=== PATIENT | female | born 1990 | race Caucasian/White ===

== ENCOUNTER 2017-05-15 10:02 | Inpatient (IN) | payer OTHER ==
[2017-05-15] MEDS ORDERED: ACETAMINOPHEN 325 MG TAB PO (13:30)
[2017-05-15] MEDS ORDERED: morphine 2 MG INJ IV (13:53)
[2017-05-15] MEDS: LACTOBACILLUS RHAMNOSUS CAP PO (14:13)
[2017-05-15] MEDS: ALLOPURINOL 100 MG TAB PO (14:13)
[2017-05-15] MEDS: HYDROCODONE/APAP (5/325) TAB PO (14:30)
[2017-05-15] MEDS: ALPRAZOLAM 0.5 MG TAB PO (14:30)
[2017-05-15] MEDS: LIDOCAINE 1% (MPF) 5 ML VIAL SC (15:15)
[2017-05-15 15:38] LABS: ADD MAN DIFF? NO
[2017-05-15 15:40] LABS: BASOPHILS % 0.7 % (0.0-2.0); EOSINOPHILS # 0.1 10^3/ul (0.0-0.5); EOSINOPHILS % 1.8 % (0.0-7.0); HEMATOCRIT 31.6 % (37.0-47.0); HEMOGLOBIN 11.1 g/dl (12.0-16.0); LYMPHOCYTES # 1.2 10^3/ul (0.8-2.9); LYMPHOCYTES % 26.5 % (15.0-51.0); MEAN CORPUSCULAR HEMOGLOBIN 35.5 pg (29.0-33.0); MEAN CORPUSCULAR HGB CONC 35.1 g/dl (32.0-37.0); MEAN PLATELET VOLUME 9.2 fl (7.4-10.4); MONOCYTE # 0.5 10^3/ul (0.3-0.9); MONOCYTES % 11.1 % (0.0-11.0); NEUTROPHIL # 2.7 10^3/ul (1.6-7.5); NEUTROPHILS % 59.7 % (39.0-77.0); PLATELET COUNT 143 10^3/UL (140-415); RED BLOOD COUNT 3.13 10^6/ul (4.20-5.40); RED CELL DISTRIBUTION WIDTH 12.1 % (11.5-14.5)
[2017-05-15 15:40] LABS: WHITE BLOOD COUNT 4.5 10^3/ul (4.8-10.8)
[2017-05-15 16:03] LABS: ALANINE AMINOTRANSFERASE 30 IU/L (13-69); ALBUMIN 3.6 g/dl (3.3-4.9); ALBUMIN/GLOBULIN RATIO 1.63; ALKALINE PHOSPHATASE 80 IU/L (42-121); AMYLASE 67 U/L (11-123); ANION GAP 13 (8-16); ASPARTATE AMINO TRANSFERASE 23 IU/L (15-46); BLOOD UREA NITROGEN 11 mg/dl (7-20); CALCIUM 8.3 mg/dl (8.4-10.2); CARBON DIOXIDE 26 mmol/L (21-31); CHLORIDE 106 mmol/L (97-110); CREATININE 0.58 mg/dl (0.44-1.00); GLUCOSE 114 mg/dl (70-220); LIPASE 283 U/L (23-300); MAGNESIUM 1.8 mg/dl (1.7-2.5); PHOSPHORUS 3.7 mg/dl (2.5-4.9); POTASSIUM 3.6 mmol/L (3.5-5.1); SODIUM 141 mmol/L (135-144); TOTAL PROTEIN 5.8 g/dl (6.1-8.1)
[2017-05-15] MEDS: SOD CHLORIDE 0.9% 1,000 ML IV ×2 (16:33→21:00)
[2017-05-16] MEDS: SOD CHLORIDE 0.9% 1,000 ML IV ×2 (04:40→23:40)
[2017-05-16 06:01] LABS: ADD MAN DIFF? NO
[2017-05-16 06:15] LABS: BASOPHILS % 0.4 % (0.0-2.0); EOSINOPHILS # 0.1 10^3/ul (0.0-0.5); EOSINOPHILS % 1.9 % (0.0-7.0); HEMATOCRIT 30.5 % (37.0-47.0); HEMOGLOBIN 10.6 g/dl (12.0-16.0); LYMPHOCYTES # 1.2 10^3/ul (0.8-2.9); LYMPHOCYTES % 22.2 % (15.0-51.0); MEAN CORPUSCULAR HEMOGLOBIN 35.3 pg (29.0-33.0); MEAN CORPUSCULAR HGB CONC 34.8 g/dl (32.0-37.0); MEAN CORPUSCULAR VOLUME 101.7 fl (82.0-101.0); MEAN PLATELET VOLUME 9.7 fl (7.4-10.4); MONOCYTE # 0.6 10^3/ul (0.3-0.9); MONOCYTES % 10.8 % (0.0-11.0); NEUTROPHIL # 3.5 10^3/ul (1.6-7.5); NEUTROPHILS % 64.5 % (39.0-77.0); PLATELET COUNT 130 10^3/UL (140-415); RED CELL DISTRIBUTION WIDTH 12.1 % (11.5-14.5)
[2017-05-16 06:15] LABS: WHITE BLOOD COUNT 5.4 10^3/ul (4.8-10.8)
[2017-05-16 06:27] LABS: PHOSPHORUS 3.6 mg/dl (2.5-4.9)
[2017-05-16 06:27] LABS: MAGNESIUM 1.6 mg/dl (1.7-2.5)
[2017-05-16 06:43] LABS: ANION GAP 11 (8-16); BLOOD UREA NITROGEN 8 mg/dl (7-20); CALCIUM 7.9 mg/dl (8.4-10.2); CARBON DIOXIDE 24 mmol/L (21-31); CHLORIDE 111 mmol/L (97-110); CREATININE 0.56 mg/dl (0.44-1.00); GLUCOSE 82 mg/dl (70-220); POTASSIUM 3.3 mmol/L (3.5-5.1); SODIUM 143 mmol/L (135-144)
[2017-05-16] MEDS ORDERED: ONDANSETRON INJ 8 MG in DEXTROSE 5% 50 ML IV (09:00)
[2017-05-16] MEDS ORDERED: ALLOPURINOL 100 MG TAB PO (09:00)
[2017-05-16] MEDS: ALLOPURINOL 100 MG TAB PO (09:03)
[2017-05-16] MEDS: LACTOBACILLUS RHAMNOSUS CAP PO (09:03)
[2017-05-16] MEDS: FLUCONAZOLE 100 MG TAB PO (09:03)
[2017-05-16] MEDS: ACYCLOVIR 400 MG TAB PO ×2 (09:03→21:10)
[2017-05-16] MEDS ORDERED: DIPHENHYDRAMINE 50 MG INJ IV (10:30)
[2017-05-16] MEDS: POTASSIUM CHLORIDE 50 ML IVPB ×2 (10:36→12:38)
[2017-05-16] MEDS: MAGNESIUM SULFATE 2 GM/50 ML 50 ML IVPB (10:36)
[2017-05-16] MEDS ORDERED: MEPERIDINE 50 MG INJ IV (12:00)
[2017-05-16] MEDS ORDERED: METHYLPREDNISOLONE 125 MG INJ IV (12:00)
[2017-05-16] MEDS: DIPHENHYDRAMINE 25 MG CAP PO ×2 (12:26→15:07)
[2017-05-16] MEDS ORDERED: DIPHENHYDRAMINE 25 MG CAP PO (12:30)
[2017-05-16] MEDS: ONDANSETRON INJ 16 MG, DEXAMETHASONE 4 MG/ML 10 MG in DEXTROSE 5% 50 ML IV (15:06)
[2017-05-16] MEDS: CYTARABINE IVPB (16:03)
[2017-05-16] MEDS: SOD CHLORIDE 0.9% IVPB (16:03)
[2017-05-16] MEDS: FLUOXETINE 10 MG CAP PO (21:23)
[2017-05-17] MEDS: ONDANSETRON INJ 16 MG, DEXAMETHASONE 4 MG/ML 10 MG in DEXTROSE 5% 50 ML IV (03:23)
[2017-05-17] MEDS: DIPHENHYDRAMINE 25 MG CAP PO (03:24)
[2017-05-17] MEDS: SOD CHLORIDE 0.9% IVPB (03:47)
[2017-05-17] MEDS: CYTARABINE IVPB (03:47)
[2017-05-17] MEDS: ACYCLOVIR 400 MG TAB PO ×2 (09:39→20:40)
[2017-05-17] MEDS: FLUCONAZOLE 100 MG TAB PO (09:39)
[2017-05-17] MEDS: LACTOBACILLUS RHAMNOSUS CAP PO (09:39)
[2017-05-17] MEDS: ALLOPURINOL 100 MG TAB PO (09:40)
[2017-05-17 11:07] LABS: ADD MAN DIFF? NO
[2017-05-17 11:28] LABS: MAGNESIUM 1.7 mg/dl (1.7-2.5)
[2017-05-17 11:29] LABS: ANION GAP 17 (8-16); BLOOD UREA NITROGEN 11 mg/dl (7-20); CALCIUM 9.2 mg/dl (8.4-10.2); CARBON DIOXIDE 24 mmol/L (21-31); CHLORIDE 106 mmol/L (97-110); CREATININE 0.62 mg/dl (0.44-1.00); GLUCOSE 117 mg/dl (70-220); POTASSIUM 4.1 mmol/L (3.5-5.1); SODIUM 143 mmol/L (135-144)
[2017-05-17 11:32] LABS: ABNORMAL IP MESSAGE 1; HEMATOCRIT 34.4 % (37.0-47.0); HEMOGLOBIN 12.2 g/dl (12.0-16.0); LYMPHOCYTES # 0.5 10^3/ul (0.8-2.9); LYMPHOCYTES % 3.9 % (15.0-51.0); MEAN CORPUSCULAR HEMOGLOBIN 35.9 pg (29.0-33.0); MEAN CORPUSCULAR HGB CONC 35.5 g/dl (32.0-37.0); MEAN CORPUSCULAR VOLUME 101.2 fl (82.0-101.0); MEAN PLATELET VOLUME 9.6 fl (7.4-10.4); MONOCYTE # 0.2 10^3/ul (0.3-0.9); MONOCYTES % 1.5 % (0.0-11.0); NEUTROPHIL # 11.4 10^3/ul (1.6-7.5); NEUTROPHILS % 94.1 % (39.0-77.0); PLATELET COUNT 156 10^3/UL (140-415); RED CELL DISTRIBUTION WIDTH 11.9 % (11.5-14.5)
[2017-05-17 11:32] LABS: WHITE BLOOD COUNT 12.2 10^3/ul (4.8-10.8)
[2017-05-17 11:35] LABS: POSITIVE DIFF @See below
[2017-05-17 11:49] LABS: INR 1.05; PROTIME 13.8 Sec (11.9-14.9); PT RATIO 1.1
[2017-05-17 11:50] LABS: PARTIAL THROMBOPLASTIN TIME 23.6 Sec (25.0-35.0)
[2017-05-17] MEDS: LIDOCAINE 1% (MDV) 20 ML INJ (14:15)
[2017-05-17] MEDS: SOD CHLORIDE 0.9% 1,000 ML IV (14:48)
[2017-05-17] MEDS: MIDAZOLAM 1 MG/ML 2 ML INJ (16:35)
[2017-05-17] MEDS: SOD CHLORIDE 0.9% 500 ML (16:36)
[2017-05-17] MEDS: FENTAnyl 50 MCG/ML VIAL (16:37)
[2017-05-18] MEDS: SOD CHLORIDE 0.9% 1,000 ML IV ×2 (00:58→16:09)
[2017-05-18 05:19] LABS: ADD MAN DIFF? NO
[2017-05-18 05:24] LABS: WHITE BLOOD COUNT 8.6 10^3/ul (4.8-10.8)
[2017-05-18 05:24] LABS: BASOPHILS % 0.1 % (0.0-2.0); EOSINOPHILS % 0.1 % (0.0-7.0); HEMATOCRIT 30.4 % (37.0-47.0); HEMOGLOBIN 10.5 g/dl (12.0-16.0); LYMPHOCYTES # 0.9 10^3/ul (0.8-2.9); LYMPHOCYTES % 9.8 % (15.0-51.0); MEAN CORPUSCULAR HEMOGLOBIN 35.1 pg (29.0-33.0); MEAN CORPUSCULAR HGB CONC 34.5 g/dl (32.0-37.0); MEAN CORPUSCULAR VOLUME 101.7 fl (82.0-101.0); MEAN PLATELET VOLUME 9.7 fl (7.4-10.4); MONOCYTE # 0.6 10^3/ul (0.3-0.9); MONOCYTES % 7.4 % (0.0-11.0); NEUTROPHIL # 7.1 10^3/ul (1.6-7.5); NEUTROPHILS % 82.3 % (39.0-77.0); PLATELET COUNT 108 10^3/UL (140-415); RED BLOOD COUNT 2.99 10^6/ul (4.20-5.40)
[2017-05-18 05:50] LABS: ALANINE AMINOTRANSFERASE 31 IU/L (13-69); ALBUMIN 3.7 g/dl (3.3-4.9); ALBUMIN/GLOBULIN RATIO 1.76; ALKALINE PHOSPHATASE 57 IU/L (42-121); ANION GAP 12 (8-16); ASPARTATE AMINO TRANSFERASE 25 IU/L (15-46); BILIRUBIN,INDIRECT 0.1 mg/dl (0-1.1); BILIRUBIN,TOTAL 0.1 mg/dl (0.2-1.3); BLOOD UREA NITROGEN 11 mg/dl (7-20); CALCIUM 8.5 mg/dl (8.4-10.2); CARBON DIOXIDE 27 mmol/L (21-31); CHLORIDE 107 mmol/L (97-110); CREATININE 0.67 mg/dl (0.44-1.00); GLUCOSE 90 mg/dl (70-220); SODIUM 142 mmol/L (135-144); TOTAL PROTEIN 5.8 g/dl (6.1-8.1)
[2017-05-18] MEDS: LACTOBACILLUS RHAMNOSUS CAP PO (09:22)
[2017-05-18] MEDS: ACYCLOVIR 400 MG TAB PO ×2 (09:23→21:51)
[2017-05-18] MEDS: ALLOPURINOL 100 MG TAB PO (09:23)
[2017-05-18] MEDS: FLUCONAZOLE 100 MG TAB PO (09:23)
[2017-05-18] MEDS: SOD CHLORIDE 0.9% IT (13:00)
[2017-05-18] MEDS: METHOTREXATE IT (13:00)
[2017-05-18] MEDS: HYDROCORTISONE IT (13:00)
[2017-05-18] MEDS: ONDANSETRON INJ 16 MG, DEXAMETHASONE 4 MG/ML 10 MG in DEXTROSE 5% 50 ML IV (16:05)
[2017-05-18] MEDS: PREDNISOLONE ACET 1% 5 ML OPH BOTH EYES (16:08)
[2017-05-18] MEDS: SOD CHLORIDE 0.9% IVPB (16:08)
[2017-05-18] MEDS: CYTARABINE IVPB (16:08)
[2017-05-18] MEDS: DIPHENHYDRAMINE 50 MG INJ IV ×2 (16:09→22:30)
[2017-05-18] MEDS: FLUOXETINE 10 MG CAP PO (21:51)
[2017-05-19] MEDS: PREDNISOLONE ACET 1% 5 ML OPH BOTH EYES ×3 (01:00→21:01)
[2017-05-19] MEDS: ONDANSETRON INJ 16 MG, DEXAMETHASONE 4 MG/ML 10 MG in DEXTROSE 5% 50 ML IV (03:19)
[2017-05-19] MEDS: DIPHENHYDRAMINE 50 MG INJ IV (03:39)
[2017-05-19] MEDS: SOD CHLORIDE 0.9% IVPB (03:53)
[2017-05-19] MEDS: CYTARABINE IVPB (03:53)
[2017-05-19] MEDS: SOD CHLORIDE 0.9% 1,000 ML IV ×2 (04:38→16:36)
[2017-05-19] MEDS: LACTOBACILLUS RHAMNOSUS CAP PO (09:11)
[2017-05-19] MEDS: ACYCLOVIR 400 MG TAB PO ×2 (09:11→21:02)
[2017-05-19] MEDS: FLUCONAZOLE 100 MG TAB PO (09:11)
[2017-05-19] MEDS: ALLOPURINOL 100 MG TAB PO (09:11)
[2017-05-19 11:44] LABS: ADD MAN DIFF? NO
[2017-05-19 11:51] LABS: WHITE BLOOD COUNT 9.8 10^3/ul (4.8-10.8)
[2017-05-19 11:51] LABS: ABNORMAL IP MESSAGE 1; HEMATOCRIT 34.1 % (37.0-47.0); LYMPHOCYTES # 0.3 10^3/ul (0.8-2.9); LYMPHOCYTES % 2.9 % (15.0-51.0); MEAN CORPUSCULAR HEMOGLOBIN 35.3 pg (29.0-33.0); MEAN CORPUSCULAR HGB CONC 35.2 g/dl (32.0-37.0); MEAN CORPUSCULAR VOLUME 100.3 fl (82.0-101.0); MEAN PLATELET VOLUME 9.6 fl (7.4-10.4); MONOCYTE # 0.1 10^3/ul (0.3-0.9); MONOCYTES % 1.4 % (0.0-11.0); NEUTROPHIL # 9.3 10^3/ul (1.6-7.5); PLATELET COUNT 143 10^3/UL (140-415); RED CELL DISTRIBUTION WIDTH 11.7 % (11.5-14.5)
[2017-05-19 12:01] LABS: POSITIVE DIFF @See below
[2017-05-19 12:13] LABS: ALBUMIN/GLOBULIN RATIO 1.83; ANION GAP 15 (8-16)
[2017-05-19 12:23] LABS: ALANINE AMINOTRANSFERASE 29 IU/L (13-69); ALBUMIN 4.4 g/dl (3.3-4.9); ALKALINE PHOSPHATASE 71 IU/L (42-121); ASPARTATE AMINO TRANSFERASE 21 IU/L (15-46); BILIRUBIN,INDIRECT 0.2 mg/dl (0-1.1); BILIRUBIN,TOTAL 0.2 mg/dl (0.2-1.3); BLOOD UREA NITROGEN 11 mg/dl (7-20); CARBON DIOXIDE 25 mmol/L (21-31); CHLORIDE 105 mmol/L (97-110); CREATININE 0.62 mg/dl (0.44-1.00); GLUCOSE 117 mg/dl (70-220); POTASSIUM 4.1 mmol/L (3.5-5.1); SODIUM 141 mmol/L (135-144); TOTAL PROTEIN 6.8 g/dl (6.1-8.1)
[2017-05-20] MEDS: SOD CHLORIDE 0.9% 1,000 ML IV ×3 (04:28→20:39)
[2017-05-20 05:04] LABS: ADD MAN DIFF? NO
[2017-05-20 05:10] LABS: WHITE BLOOD COUNT 7.4 10^3/ul (4.8-10.8)
[2017-05-20 05:10] LABS: BASOPHILS % 0.1 % (0.0-2.0); EOSINOPHILS % 0.3 % (0.0-7.0); HEMOGLOBIN 10.6 g/dl (12.0-16.0); LYMPHOCYTES # 0.6 10^3/ul (0.8-2.9); LYMPHOCYTES % 8.2 % (15.0-51.0); MEAN CORPUSCULAR HEMOGLOBIN 35.8 pg (29.0-33.0); MEAN CORPUSCULAR HGB CONC 35.3 g/dl (32.0-37.0); MEAN CORPUSCULAR VOLUME 101.4 fl (82.0-101.0); MEAN PLATELET VOLUME 9.5 fl (7.4-10.4); MONOCYTE # 0.2 10^3/ul (0.3-0.9); MONOCYTES % 2.8 % (0.0-11.0); NEUTROPHIL # 6.6 10^3/ul (1.6-7.5); NEUTROPHILS % 88.1 % (39.0-77.0); PLATELET COUNT 118 10^3/UL (140-415); RED BLOOD COUNT 2.96 10^6/ul (4.20-5.40); RED CELL DISTRIBUTION WIDTH 11.5 % (11.5-14.5)
[2017-05-20 05:52] LABS: ALANINE AMINOTRANSFERASE 29 IU/L (13-69); ALBUMIN 3.5 g/dl (3.3-4.9); ALBUMIN/GLOBULIN RATIO 1.45; ALKALINE PHOSPHATASE 57 IU/L (42-121); ANION GAP 12 (8-16); ASPARTATE AMINO TRANSFERASE 21 IU/L (15-46); BILIRUBIN,INDIRECT 0.1 mg/dl (0-1.1); BILIRUBIN,TOTAL 0.1 mg/dl (0.2-1.3); BLOOD UREA NITROGEN 13 mg/dl (7-20); CALCIUM 8.9 mg/dl (8.4-10.2); CARBON DIOXIDE 27 mmol/L (21-31); CHLORIDE 107 mmol/L (97-110); CREATININE 0.62 mg/dl (0.44-1.00); GLUCOSE 105 mg/dl (70-220); POTASSIUM 3.7 mmol/L (3.5-5.1); SODIUM 142 mmol/L (135-144); TOTAL PROTEIN 5.9 g/dl (6.1-8.1)
[2017-05-20] MEDS: ACYCLOVIR 400 MG TAB PO ×2 (09:35→20:37)
[2017-05-20] MEDS: LACTOBACILLUS RHAMNOSUS CAP PO (09:35)
[2017-05-20] MEDS: FLUCONAZOLE 100 MG TAB PO (09:36)
[2017-05-20] MEDS: ALLOPURINOL 100 MG TAB PO (09:36)
[2017-05-20] MEDS: PREDNISOLONE ACET 1% 5 ML OPH BOTH EYES ×2 (09:36→20:37)
[2017-05-20] MEDS: DIPHENHYDRAMINE 50 MG INJ IV ×2 (10:30→22:30)
[2017-05-20] MEDS: DIPHENHYDRAMINE 25 MG CAP PO (15:26)
[2017-05-20] MEDS: ONDANSETRON INJ 16 MG, DEXAMETHASONE 4 MG/ML 10 MG in DEXTROSE 5% 50 ML IV (16:00)
[2017-05-20] MEDS: CYTARABINE IVPB (17:00)
[2017-05-20] MEDS: SOD CHLORIDE 0.9% IVPB (17:00)
[2017-05-20] MEDS: FLUOXETINE 10 MG CAP PO (20:37)
[2017-05-21] MEDS: DIPHENHYDRAMINE 50 MG INJ IV (03:48)
[2017-05-21] MEDS: ONDANSETRON INJ 16 MG, DEXAMETHASONE 4 MG/ML 10 MG in DEXTROSE 5% 50 ML IV (03:48)
[2017-05-21] MEDS: CYTARABINE IVPB (04:22)
[2017-05-21] MEDS: SOD CHLORIDE 0.9% IVPB (04:22)
[2017-05-21] MEDS: LACTOBACILLUS RHAMNOSUS CAP PO (08:33)
[2017-05-21] MEDS: PREDNISOLONE ACET 1% 5 ML OPH BOTH EYES ×2 (08:33→20:54)
[2017-05-21] MEDS: SOD CHLORIDE 0.9% 1,000 ML IV ×2 (08:34→22:17)
[2017-05-21] MEDS: ALLOPURINOL 100 MG TAB PO (08:34)
[2017-05-21] MEDS: FLUCONAZOLE 100 MG TAB PO (08:34)
[2017-05-21] MEDS: ACYCLOVIR 400 MG TAB PO ×2 (08:34→20:54)
[2017-05-21 10:42] LABS: ADD MAN DIFF? NO
[2017-05-21 10:55] LABS: ABNORMAL IP MESSAGE 1; BASOPHILS % 0.2 % (0.0-2.0); HEMATOCRIT 31.1 % (37.0-47.0); HEMOGLOBIN 11.2 g/dl (12.0-16.0); LYMPHOCYTES # 0.3 10^3/ul (0.8-2.9); MEAN CORPUSCULAR HEMOGLOBIN 35.1 pg (29.0-33.0); MEAN CORPUSCULAR VOLUME 97.5 fl (82.0-101.0); MEAN PLATELET VOLUME 9.4 fl (7.4-10.4); MONOCYTES % 0.2 % (0.0-11.0); NEUTROPHIL # 5.9 10^3/ul (1.6-7.5); PLATELET COUNT 112 10^3/UL (140-415); RED BLOOD COUNT 3.19 10^6/ul (4.20-5.40); RED CELL DISTRIBUTION WIDTH 11.4 % (11.5-14.5)
[2017-05-21 10:55] LABS: WHITE BLOOD COUNT 6.2 10^3/ul (4.8-10.8)
[2017-05-21 11:05] LABS: POSITIVE DIFF @See below
[2017-05-21 11:09] LABS: ALANINE AMINOTRANSFERASE 33 IU/L (13-69); ALBUMIN 3.9 g/dl (3.3-4.9); ALBUMIN/GLOBULIN RATIO 1.56; ALKALINE PHOSPHATASE 59 IU/L (42-121); ANION GAP 13 (8-16); ASPARTATE AMINO TRANSFERASE 20 IU/L (15-46); BILIRUBIN,INDIRECT 0.1 mg/dl (0-1.1); BILIRUBIN,TOTAL 0.1 mg/dl (0.2-1.3); BLOOD UREA NITROGEN 13 mg/dl (7-20); CALCIUM 9.5 mg/dl (8.4-10.2); CARBON DIOXIDE 27 mmol/L (21-31); CHLORIDE 106 mmol/L (97-110); CREATININE 0.56 mg/dl (0.44-1.00); GLUCOSE 119 mg/dl (70-220); POTASSIUM 4.1 mmol/L (3.5-5.1); SODIUM 142 mmol/L (135-144); TOTAL PROTEIN 6.4 g/dl (6.1-8.1)
[2017-05-22] MEDS: PREDNISOLONE ACET 1% 5 ML OPH BOTH EYES ×2 (09:49→21:05)
[2017-05-22] MEDS: LACTOBACILLUS RHAMNOSUS CAP PO (09:49)
[2017-05-22] MEDS: FLUCONAZOLE 100 MG TAB PO (09:49)
[2017-05-22] MEDS: SOD CHLORIDE 0.9% 1,000 ML IV ×2 (09:49→22:43)
[2017-05-22] MEDS: ALLOPURINOL 100 MG TAB PO (09:49)
[2017-05-22] MEDS: ACYCLOVIR 400 MG TAB PO ×2 (09:49→21:05)
[2017-05-22 10:31] LABS: ADD MAN DIFF? NO
[2017-05-22 10:38] LABS: WHITE BLOOD COUNT 3.6 10^3/ul (4.8-10.8)
[2017-05-22 10:38] LABS: ABNORMAL IP MESSAGE 1; BASOPHILS % 0.3 % (0.0-2.0); EOSINOPHILS % 0.3 % (0.0-7.0); HEMOGLOBIN 11.5 g/dl (12.0-16.0); LYMPHOCYTES # 0.8 10^3/ul (0.8-2.9); MEAN CORPUSCULAR HEMOGLOBIN 35.3 pg (29.0-33.0); MEAN CORPUSCULAR HGB CONC 35.9 g/dl (32.0-37.0); MEAN CORPUSCULAR VOLUME 98.2 fl (82.0-101.0); MEAN PLATELET VOLUME 8.8 fl (7.4-10.4); NEUTROPHIL # 2.8 10^3/ul (1.6-7.5); NEUTROPHILS % 77.8 % (39.0-77.0); RED BLOOD COUNT 3.26 10^6/ul (4.20-5.40); RED CELL DISTRIBUTION WIDTH 11.4 % (11.5-14.5)
[2017-05-22 10:41] LABS: PLATELET COUNT 82 10^3/UL (140-415); POSITIVE DIFF @See below
[2017-05-22 10:51] LABS: ANION GAP 13 (8-16); BLOOD UREA NITROGEN 13 mg/dl (7-20); CARBON DIOXIDE 28 mmol/L (21-31); CHLORIDE 105 mmol/L (97-110); CREATININE 0.68 mg/dl (0.44-1.00); GLUCOSE 81 mg/dl (70-220); POTASSIUM 3.8 mmol/L (3.5-5.1); SODIUM 142 mmol/L (135-144)
[2017-05-22 10:52] LABS: ALANINE AMINOTRANSFERASE 32 IU/L (13-69); ALBUMIN/GLOBULIN RATIO 1.81; ALKALINE PHOSPHATASE 65 IU/L (42-121); ASPARTATE AMINO TRANSFERASE 16 IU/L (15-46); BILIRUBIN,INDIRECT 0.1 mg/dl (0-1.1); BILIRUBIN,TOTAL 0.1 mg/dl (0.2-1.3); CALCIUM 9.1 mg/dl (8.4-10.2); TOTAL PROTEIN 6.2 g/dl (6.1-8.1)
[2017-05-22] MEDS: FLUOXETINE 10 MG CAP PO (21:05)
[2017-05-23] MEDS: SOD CHLORIDE 0.9% 1,000 ML IV ×2 (02:20→12:35)
[2017-05-23 05:19] LABS: ADD MAN DIFF? NO
[2017-05-23 05:25] LABS: WHITE BLOOD COUNT 3.1 10^3/ul (4.8-10.8)
[2017-05-23 05:25] LABS: ABNORMAL IP MESSAGE 1; BASOPHILS % 0.6 % (0.0-2.0); EOSINOPHILS % 0.3 % (0.0-7.0); HEMATOCRIT 30.8 % (37.0-47.0); HEMOGLOBIN 11.1 g/dl (12.0-16.0); LYMPHOCYTES % 30.8 % (15.0-51.0); MEAN CORPUSCULAR HEMOGLOBIN 35.4 pg (29.0-33.0); MEAN CORPUSCULAR VOLUME 98.1 fl (82.0-101.0); MEAN PLATELET VOLUME 9.1 fl (7.4-10.4); NEUTROPHIL # 2.1 10^3/ul (1.6-7.5); PLATELET COUNT 79 10^3/UL (140-415); RED BLOOD COUNT 3.14 10^6/ul (4.20-5.40); RED CELL DISTRIBUTION WIDTH 11.5 % (11.5-14.5)
[2017-05-23 05:32] LABS: POSITIVE DIFF @See below
[2017-05-23 05:44] LABS: ALANINE AMINOTRANSFERASE 31 IU/L (13-69); ALBUMIN 3.5 g/dl (3.3-4.9); ALBUMIN/GLOBULIN RATIO 1.45; ALKALINE PHOSPHATASE 62 IU/L (42-121); ANION GAP 11 (8-16); ASPARTATE AMINO TRANSFERASE 16 IU/L (15-46); BLOOD UREA NITROGEN 13 mg/dl (7-20); CARBON DIOXIDE 28 mmol/L (21-31); CHLORIDE 105 mmol/L (97-110); GLUCOSE 90 mg/dl (70-220); POTASSIUM 3.9 mmol/L (3.5-5.1); SODIUM 140 mmol/L (135-144); TOTAL PROTEIN 5.9 g/dl (6.1-8.1)
[2017-05-23] MEDS: ACYCLOVIR 400 MG TAB PO ×2 (10:22→20:53)
[2017-05-23] MEDS: FLUCONAZOLE 100 MG TAB PO (10:23)
[2017-05-23] MEDS: LACTOBACILLUS RHAMNOSUS CAP PO (10:23)
[2017-05-23] MEDS: ALLOPURINOL 100 MG TAB PO (10:24)
[2017-05-23] MEDS: PREDNISOLONE ACET 1% 5 ML OPH BOTH EYES ×2 (10:26→20:59)
[2017-05-24] MEDS: SOD CHLORIDE 0.9% 1,000 ML IV ×2 (02:48→16:21)
[2017-05-24 05:43] LABS: MAGNESIUM 1.9 mg/dl (1.7-2.5)
[2017-05-24 05:43] LABS: PHOSPHORUS 5.1 mg/dl (2.5-4.9)
[2017-05-24 06:03] LABS: ALANINE AMINOTRANSFERASE 32 IU/L (13-69); ALBUMIN 3.8 g/dl (3.3-4.9); ALBUMIN/GLOBULIN RATIO 1.46; ALKALINE PHOSPHATASE 67 IU/L (42-121); ANION GAP 11 (8-16); ASPARTATE AMINO TRANSFERASE 20 IU/L (15-46); BLOOD UREA NITROGEN 11 mg/dl (7-20); CALCIUM 9.4 mg/dl (8.4-10.2); CARBON DIOXIDE 30 mmol/L (21-31); CHLORIDE 103 mmol/L (97-110); CREATININE 0.58 mg/dl (0.44-1.00); GLUCOSE 92 mg/dl (70-220); POTASSIUM 3.9 mmol/L (3.5-5.1); SODIUM 140 mmol/L (135-144); TOTAL PROTEIN 6.4 g/dl (6.1-8.1)
[2017-05-24 08:05] LABS: ABNORMAL IP MESSAGE 1; HEMATOCRIT 33.5 % (37.0-47.0); HEMOGLOBIN 12.1 g/dl (12.0-16.0); MEAN CORPUSCULAR HEMOGLOBIN 34.9 pg (29.0-33.0); MEAN CORPUSCULAR HGB CONC 36.1 g/dl (32.0-37.0); MEAN CORPUSCULAR VOLUME 96.5 fl (82.0-101.0); PLATELET COUNT 60 10^3/UL (140-415); RED BLOOD COUNT 3.47 10^6/ul (4.20-5.40); RED CELL DISTRIBUTION WIDTH 11.4 % (11.5-14.5)
[2017-05-24 08:05] LABS: WHITE BLOOD COUNT 2.4 10^3/ul (4.8-10.8)
[2017-05-24 08:10] LABS: POSITIVE DIFF @See below
[2017-05-24 08:12] LABS: ADD MAN DIFF? YES
[2017-05-24] MEDS: LACTOBACILLUS RHAMNOSUS CAP PO (08:12)
[2017-05-24] MEDS: FLUCONAZOLE 100 MG TAB PO (08:12)
[2017-05-24] MEDS: PREDNISOLONE ACET 1% 5 ML OPH BOTH EYES ×3 (08:12→21:06)
[2017-05-24] MEDS: ACYCLOVIR 400 MG TAB PO ×2 (08:12→21:06)
[2017-05-24] MEDS: ALLOPURINOL 100 MG TAB PO (08:12)
[2017-05-24 13:00] LABS: ANISOCYTOSIS 1+ (0-0); BAND NEUTROPHILS #M 0.1 10^3/ul (0.0-0.6); BAND NEUTROPHILS % (M) 5 % (0-4); BLAST% (M) 5.2 % (0-0); EOSINOPHILS % (M) 1 % (0-7); LYMPHOCYTES #M 0.6 10^3/ul (0.8-2.9); LYMPHOCYTES % (M) 27 % (15-51); OVALOCYTES 1+ (0-0); PLATELET ESTIMATE DECREASED; POIKILOCYTOSIS 1+ (0-0); REACTIVE LYMPHOCYTES% (M) 1 % (0-0); SEG NEUT #M 1.5 10^3/ul (1.7-7.5); SEGMENTED NEUTROPHILS (M) % 61 % (39-77); SMUDGE%M 5 % (0-0)
[2017-05-24] MEDS: FLUOXETINE 10 MG CAP PO (21:05)
[2017-05-25 05:19] LABS: ABNORMAL IP MESSAGE 1; HEMOGLOBIN 11.1 g/dl (12.0-16.0); MEAN CORPUSCULAR HEMOGLOBIN 35.5 pg (29.0-33.0); MEAN CORPUSCULAR VOLUME 95.8 fl (82.0-101.0); RED BLOOD COUNT 3.13 10^6/ul (4.20-5.40); RED CELL DISTRIBUTION WIDTH 11.3 % (11.5-14.5)
[2017-05-25 05:22] LABS: ADD MAN DIFF? YES; PATH REVIEW? YES; POSITIVE DIFF @See below
[2017-05-25 05:24] LABS: PLATELET COUNT 43 10^3/UL (140-415)
[2017-05-25 05:45] LABS: ALANINE AMINOTRANSFERASE 31 IU/L (13-69); ALBUMIN 3.8 g/dl (3.3-4.9); ALBUMIN/GLOBULIN RATIO 1.52; ALKALINE PHOSPHATASE 75 IU/L (42-121); ANION GAP 13 (8-16); ASPARTATE AMINO TRANSFERASE 19 IU/L (15-46); BLOOD UREA NITROGEN 13 mg/dl (7-20); CALCIUM 9.3 mg/dl (8.4-10.2); CARBON DIOXIDE 29 mmol/L (21-31); CHLORIDE 103 mmol/L (97-110); GLUCOSE 90 mg/dl (70-220); POTASSIUM 3.8 mmol/L (3.5-5.1); SODIUM 141 mmol/L (135-144); TOTAL PROTEIN 6.3 g/dl (6.1-8.1)
[2017-05-25 05:49] LABS: PHOSPHORUS 4.9 mg/dl (2.5-4.9)
[2017-05-25 05:49] LABS: MAGNESIUM 1.9 mg/dl (1.7-2.5)
[2017-05-25] MEDS: SOD CHLORIDE 0.9% 1,000 ML IV ×2 (07:40→10:05)
[2017-05-25 07:48] LABS: ANISOCYTOSIS 1+ (0-0); LYMPHOCYTES % (M) 50 % (15-51); MICROCYTOSIS 1+ (0-0); MONOCYTES % (M) 2 % (0-11); PLATELET ESTIMATE DECREASED; SEGMENTED NEUTROPHILS (M) % 48 % (39-77); SMUDGE%M 4 % (0-0)
[2017-05-25] MEDS: PREDNISOLONE ACET 1% 5 ML OPH BOTH EYES ×2 (08:58→21:00)
[2017-05-25] MEDS: ALLOPURINOL 100 MG TAB PO (08:58)
[2017-05-25] MEDS: FLUCONAZOLE 100 MG TAB PO (08:58)
[2017-05-25] MEDS: LACTOBACILLUS RHAMNOSUS CAP PO (08:58)
[2017-05-25] MEDS: ACYCLOVIR 400 MG TAB PO ×2 (08:58→21:18)
[2017-05-25 11:21] LABS: PATH REVIEW CH
[2017-05-25] MEDS: GUAIFENESIN 20 MG/ML 5ML CUP PO (21:14)
[2017-05-26 05:37] LABS: ABNORMAL IP MESSAGE 1; HEMATOCRIT 29.1 % (37.0-47.0); HEMOGLOBIN 10.7 g/dl (12.0-16.0); MEAN CORPUSCULAR HEMOGLOBIN 35.4 pg (29.0-33.0); MEAN CORPUSCULAR HGB CONC 36.8 g/dl (32.0-37.0); MEAN CORPUSCULAR VOLUME 96.4 fl (82.0-101.0); MEAN PLATELET VOLUME 9.4 fl (7.4-10.4); RED BLOOD COUNT 3.02 10^6/ul (4.20-5.40); RED CELL DISTRIBUTION WIDTH 11.2 % (11.5-14.5)
[2017-05-26 05:37] LABS: WHITE BLOOD COUNT 1.5 10^3/ul (4.8-10.8)
[2017-05-26 05:44] LABS: PLATELET COUNT 26 10^3/UL (140-415); POSITIVE DIFF @See below
[2017-05-26 05:45] LABS: ADD MAN DIFF? YES
[2017-05-26 06:03] LABS: MAGNESIUM 1.9 mg/dl (1.7-2.5)
[2017-05-26 06:04] LABS: ALANINE AMINOTRANSFERASE 31 IU/L (13-69); ALBUMIN 3.8 g/dl (3.3-4.9); ALBUMIN/GLOBULIN RATIO 1.52; ALKALINE PHOSPHATASE 67 IU/L (42-121); ANION GAP 13 (8-16); ASPARTATE AMINO TRANSFERASE 19 IU/L (15-46); BILIRUBIN,INDIRECT 0.1 mg/dl (0-1.1); BILIRUBIN,TOTAL 0.1 mg/dl (0.2-1.3); BLOOD UREA NITROGEN 12 mg/dl (7-20); CALCIUM 9.2 mg/dl (8.4-10.2); CARBON DIOXIDE 29 mmol/L (21-31); CHLORIDE 103 mmol/L (97-110); CREATININE 0.66 mg/dl (0.44-1.00); GLUCOSE 89 mg/dl (70-220); POTASSIUM 3.7 mmol/L (3.5-5.1); SODIUM 141 mmol/L (135-144); TOTAL PROTEIN 6.3 g/dl (6.1-8.1)
[2017-05-26 08:31] LABS: BASOPHILS % 0.7 % (0.0-2.0); LYMPHOCYTES # 0.9 10^3/ul (0.8-2.9); LYMPHOCYTES % 61.9 % (15.0-51.0); MONOCYTES % 0.7 % (0.0-11.0); NEUTROPHIL # 0.5 10^3/ul (1.6-7.5)
[2017-05-26] MEDS: PREDNISOLONE ACET 1% 5 ML OPH BOTH EYES ×2 (09:00→21:00)
[2017-05-26 09:27] LABS: ANISOCYTOSIS 1+ (0-0); BAND NEUTROPHILS % (M) 1 % (0-4); BASOPHILS % (M) 2 % (0-2); ERYTHROBLAST% (NRBC) (M) 1 % (0-0); GIANT THROMBO% (M) 1 % (0-0); LYMPHOCYTES #M 0.9 10^3/ul (0.8-2.9); LYMPHOCYTES % (M) 66 % (15-51); MICROCYTOSIS 1+ (0-0); PLATELET ESTIMATE SIG DECREASED; POLYCHROMASIA 2+ (0-0); REACTIVE LYMPHOCYTES% (M) 3 % (0-0); SEG NEUT #M 0.4 10^3/ul (1.7-7.5); SEGMENTED NEUTROPHILS (M) % 29 % (39-77)
[2017-05-26] MEDS: FLUCONAZOLE 100 MG TAB PO (09:55)
[2017-05-26] MEDS: LACTOBACILLUS RHAMNOSUS CAP PO (09:55)
[2017-05-26] MEDS: ALLOPURINOL 100 MG TAB PO (09:56)
[2017-05-26] MEDS: ACYCLOVIR 400 MG TAB PO ×2 (09:56→21:12)
[2017-05-26] MEDS: LEVOFLOXACIN 750MG/D5W (PMX) 150 ML IVPB (14:04)
[2017-05-26] MEDS: GUAIFENESIN 20 MG/ML 5ML CUP PO ×2 (14:25→21:12)
[2017-05-26 17:08] LABS: PATH REVIEW CH
[2017-05-26] MEDS: FLUOXETINE 10 MG CAP PO (21:12)
[2017-05-27 05:02] LABS: WHITE BLOOD COUNT 0.9 10^3/ul (4.8-10.8)
[2017-05-27 05:02] LABS: ABNORMAL IP MESSAGE 1; HEMATOCRIT 29.5 % (37.0-47.0); HEMOGLOBIN 10.8 g/dl (12.0-16.0); MEAN CORPUSCULAR HEMOGLOBIN 35.2 pg (29.0-33.0); MEAN CORPUSCULAR HGB CONC 36.6 g/dl (32.0-37.0); MEAN CORPUSCULAR VOLUME 96.1 fl (82.0-101.0); MEAN PLATELET VOLUME 9.2 fl (7.4-10.4); RED BLOOD COUNT 3.07 10^6/ul (4.20-5.40)
[2017-05-27 05:26] LABS: PHOSPHORUS 5.1 mg/dl (2.5-4.9)
[2017-05-27 05:26] LABS: MAGNESIUM 1.9 mg/dl (1.7-2.5)
[2017-05-27 05:36] LABS: POSITIVE DIFF @See below
[2017-05-27 05:38] LABS: ALANINE AMINOTRANSFERASE 35 IU/L (13-69); ALBUMIN/GLOBULIN RATIO 1.81; ALKALINE PHOSPHATASE 76 IU/L (42-121); ANION GAP 15 (8-16); ASPARTATE AMINO TRANSFERASE 19 IU/L (15-46); BLOOD UREA NITROGEN 8 mg/dl (7-20); CALCIUM 9.5 mg/dl (8.4-10.2); CARBON DIOXIDE 27 mmol/L (21-31); CHLORIDE 104 mmol/L (97-110); CREATININE 0.66 mg/dl (0.44-1.00); GLUCOSE 94 mg/dl (70-220); POTASSIUM 3.7 mmol/L (3.5-5.1); SODIUM 142 mmol/L (135-144); TOTAL PROTEIN 6.2 g/dl (6.1-8.1)
[2017-05-27 05:39] LABS: PLATELET COUNT 15 10^3/UL (140-415)
[2017-05-27 05:40] LABS: ADD MAN DIFF? YES
[2017-05-27 08:57] LABS: ANISOCYTOSIS 1+ (0-0); ERYTHROBLAST% (NRBC) (M) 1 % (0-0); LYMPHOCYTES #M 0.7 10^3/ul (0.8-2.9); LYMPHOCYTES % (M) 85 % (15-51); MONOCYTES % (M) 1 % (0-11); PLATELET ESTIMATE SIG DECREASED; SEGMENTED NEUTROPHILS (M) % 14 % (39-77); SMUDGE%M 3 % (0-0)
[2017-05-27] MEDS: LACTOBACILLUS RHAMNOSUS CAP PO (10:04)
[2017-05-27] MEDS: ALLOPURINOL 100 MG TAB PO (10:04)
[2017-05-27] MEDS: ACYCLOVIR 400 MG TAB PO ×2 (10:05→20:07)
[2017-05-27] MEDS: PREDNISOLONE ACET 1% 5 ML OPH BOTH EYES ×2 (10:05→20:07)
[2017-05-27] MEDS: FLUCONAZOLE 100 MG TAB PO (10:05)
[2017-05-27] MEDS: LEVOFLOXACIN 750MG/D5W (PMX) 150 ML IVPB (13:45)
[2017-05-28 05:06] LABS: ABNORMAL IP MESSAGE 1; HEMATOCRIT 29.5 % (37.0-47.0); HEMOGLOBIN 10.7 g/dl (12.0-16.0); MEAN CORPUSCULAR HEMOGLOBIN 34.6 pg (29.0-33.0); MEAN CORPUSCULAR HGB CONC 36.3 g/dl (32.0-37.0); MEAN CORPUSCULAR VOLUME 95.5 fl (82.0-101.0); MEAN PLATELET VOLUME 9.2 fl (7.4-10.4); RED BLOOD COUNT 3.09 10^6/ul (4.20-5.40); RED CELL DISTRIBUTION WIDTH 10.9 % (11.5-14.5)
[2017-05-28 05:42] LABS: MAGNESIUM 1.9 mg/dl (1.7-2.5)
[2017-05-28 05:42] LABS: PHOSPHORUS 5.3 mg/dl (2.5-4.9)
[2017-05-28 05:47] LABS: ALANINE AMINOTRANSFERASE 37 IU/L (13-69); ALBUMIN 3.9 g/dl (3.3-4.9); ALBUMIN/GLOBULIN RATIO 1.62; ALKALINE PHOSPHATASE 76 IU/L (42-121); ANION GAP 14 (8-16); ASPARTATE AMINO TRANSFERASE 19 IU/L (15-46); BLOOD UREA NITROGEN 9 mg/dl (7-20); CALCIUM 9.5 mg/dl (8.4-10.2); CARBON DIOXIDE 28 mmol/L (21-31); CHLORIDE 103 mmol/L (97-110); CREATININE 0.66 mg/dl (0.44-1.00); GLUCOSE 94 mg/dl (70-220); POTASSIUM 3.5 mmol/L (3.5-5.1); SODIUM 141 mmol/L (135-144); TOTAL PROTEIN 6.3 g/dl (6.1-8.1)
[2017-05-28 05:52] LABS: POSITIVE DIFF @See below
[2017-05-28 05:53] LABS: ADD MAN DIFF? YES; PLATELET COUNT 8 10^3/UL (140-415)
[2017-05-28] MEDS: PREDNISOLONE ACET 1% 5 ML OPH BOTH EYES ×2 (09:00→21:00)
[2017-05-28 09:03] LABS: ANISOCYTOSIS 1+ (0-0); BASOPHILS % (M) 2 % (0-2); GIANT THROMBO% (M) 2 % (0-0); LYMPHOCYTES #M 0.9 10^3/ul (0.8-2.9); LYMPHOCYTES % (M) 93 % (15-51); MICROCYTOSIS 1+ (0-0); MONOCYTES % (M) 1 % (0-11); PLATELET ESTIMATE SIG DECREASED; POLYCHROMASIA 1+ (0-0); REACTIVE LYMPHOCYTES% (M) 1 % (0-0); SEGMENTED NEUTROPHILS (M) % 3 % (39-77)
[2017-05-28] MEDS: ALLOPURINOL 100 MG TAB PO (10:44)
[2017-05-28] MEDS: ACYCLOVIR 400 MG TAB PO ×2 (10:44→21:05)
[2017-05-28] MEDS: FLUCONAZOLE 100 MG TAB PO (10:44)
[2017-05-28] MEDS: LACTOBACILLUS RHAMNOSUS CAP PO (10:44)
[2017-05-28 11:46] LABS: TYPE AND SCREEN 1 1
[2017-05-28] MEDS: LEVOFLOXACIN 750MG/D5W (PMX) 150 ML IVPB (13:51)
[2017-05-28] MEDS: FLUOXETINE 10 MG CAP PO (21:05)
[2017-05-29 05:24] LABS: ABNORMAL IP MESSAGE 1; HEMATOCRIT 27.2 % (37.0-47.0); HEMOGLOBIN 9.9 g/dl (12.0-16.0); MEAN CORPUSCULAR HEMOGLOBIN 34.7 pg (29.0-33.0); MEAN CORPUSCULAR HGB CONC 36.4 g/dl (32.0-37.0); MEAN CORPUSCULAR VOLUME 95.4 fl (82.0-101.0); MEAN PLATELET VOLUME 10.6 fl (7.4-10.4); PLATELET COUNT 40 10^3/UL (140-415); RED BLOOD COUNT 2.85 10^6/ul (4.20-5.40); RED CELL DISTRIBUTION WIDTH 10.7 % (11.5-14.5)
[2017-05-29 05:24] LABS: WHITE BLOOD COUNT 0.7 10^3/ul (4.8-10.8)
[2017-05-29 05:37] LABS: ADD MAN DIFF? YES; POSITIVE DIFF @See below
[2017-05-29 05:42] LABS: ANION GAP 12 (8-16)
[2017-05-29 05:59] LABS: MAGNESIUM 1.9 mg/dl (1.7-2.5)
[2017-05-29 05:59] LABS: PHOSPHORUS 5.3 mg/dl (2.5-4.9)
[2017-05-29 06:03] LABS: ALANINE AMINOTRANSFERASE 27 IU/L (13-69); ALBUMIN 3.9 g/dl (3.3-4.9); ALBUMIN/GLOBULIN RATIO 1.56; ALKALINE PHOSPHATASE 80 IU/L (42-121); ASPARTATE AMINO TRANSFERASE 18 IU/L (15-46); BLOOD UREA NITROGEN 14 mg/dl (7-20); CALCIUM 9.4 mg/dl (8.4-10.2); CARBON DIOXIDE 30 mmol/L (21-31); CHLORIDE 101 mmol/L (97-110); CREATININE 0.69 mg/dl (0.44-1.00); GLUCOSE 91 mg/dl (70-220); POTASSIUM 3.6 mmol/L (3.5-5.1); SODIUM 139 mmol/L (135-144); TOTAL PROTEIN 6.4 g/dl (6.1-8.1)
[2017-05-29] MEDS: PREDNISOLONE ACET 1% 5 ML OPH BOTH EYES ×2 (08:36→21:00)
[2017-05-29] MEDS: LACTOBACILLUS RHAMNOSUS CAP PO (08:39)
[2017-05-29] MEDS: ACYCLOVIR 400 MG TAB PO ×2 (08:39→21:28)
[2017-05-29] MEDS: FLUCONAZOLE 100 MG TAB PO (08:39)
[2017-05-29] MEDS: ALLOPURINOL 100 MG TAB PO (08:39)
[2017-05-29 09:41] LABS: ANISOCYTOSIS 1+ (0-0); LYMPHOCYTES #M 0.6 10^3/ul (0.8-2.9)
[2017-05-29 10:21] LABS: LYMPHOCYTES % (M) 99 % (15-51); PLATELET ESTIMATE SIG DECREASED; SEGMENTED NEUTROPHILS (M) % 1 % (39-77); SMUDGE%M 3 % (0-0)
[2017-05-29] MEDS: LEVOFLOXACIN 750MG/D5W (PMX) 150 ML IVPB (12:47)
[2017-05-30 05:20] LABS: WHITE BLOOD COUNT 0.7 10^3/ul (4.8-10.8)
[2017-05-30 05:20] LABS: ABNORMAL IP MESSAGE 1; HEMATOCRIT 26.5 % (37.0-47.0); HEMOGLOBIN 9.8 g/dl (12.0-16.0); MEAN CORPUSCULAR HEMOGLOBIN 34.9 pg (29.0-33.0); MEAN CORPUSCULAR VOLUME 94.3 fl (82.0-101.0); MEAN PLATELET VOLUME 10.6 fl (7.4-10.4); PLATELET COUNT 33 10^3/UL (140-415); RED BLOOD COUNT 2.81 10^6/ul (4.20-5.40); RED CELL DISTRIBUTION WIDTH 10.9 % (11.5-14.5)
[2017-05-30 05:27] LABS: ADD MAN DIFF? YES; POSITIVE DIFF @See below
[2017-05-30 05:35] LABS: INR 0.93; PROTIME 12.6 Sec (11.9-14.9)
[2017-05-30 05:36] LABS: PARTIAL THROMBOPLASTIN TIME 29.2 Sec (25.0-35.0)
[2017-05-30 05:43] LABS: PHOSPHORUS 4.9 mg/dl (2.5-4.9)
[2017-05-30 05:43] LABS: MAGNESIUM 1.9 mg/dl (1.7-2.5)
[2017-05-30 05:45] LABS: ALANINE AMINOTRANSFERASE 27 IU/L (13-69); ALBUMIN 3.8 g/dl (3.3-4.9); ALBUMIN/GLOBULIN RATIO 1.46; ALKALINE PHOSPHATASE 77 IU/L (42-121); ANION GAP 12 (8-16); ASPARTATE AMINO TRANSFERASE 17 IU/L (15-46); BILIRUBIN,INDIRECT 0.1 mg/dl (0-1.1); BILIRUBIN,TOTAL 0.1 mg/dl (0.2-1.3); BLOOD UREA NITROGEN 14 mg/dl (7-20); CALCIUM 9.3 mg/dl (8.4-10.2); CARBON DIOXIDE 30 mmol/L (21-31); CHLORIDE 102 mmol/L (97-110); CREATININE 0.65 mg/dl (0.44-1.00); GLUCOSE 92 mg/dl (70-220); POTASSIUM 3.4 mmol/L (3.5-5.1); SODIUM 141 mmol/L (135-144); TOTAL PROTEIN 6.4 g/dl (6.1-8.1)
[2017-05-30 09:30] LABS: ANISOCYTOSIS 1+ (0-0); BAND NEUTROPHILS % (M) 1 % (0-4); LYMPHOCYTES #M 0.6 10^3/ul (0.8-2.9); LYMPHOCYTES % (M) 99 % (15-51); MICROCYTOSIS 1+ (0-0); PLATELET ESTIMATE DECREASED; SMUDGE%M 5 % (0-0)
[2017-05-30] MEDS: PREDNISOLONE ACET 1% 5 ML OPH BOTH EYES ×2 (10:12→21:28)
[2017-05-30] MEDS: ALLOPURINOL 100 MG TAB PO (10:12)
[2017-05-30] MEDS: LACTOBACILLUS RHAMNOSUS CAP PO (10:12)
[2017-05-30] MEDS: ACYCLOVIR 400 MG TAB PO ×2 (10:12→21:29)
[2017-05-30] MEDS: FLUCONAZOLE 100 MG TAB PO (10:12)
[2017-05-30] MEDS: LEVOFLOXACIN 750MG/D5W (PMX) 150 ML IVPB (14:13)
[2017-05-30] MEDS: FLUOXETINE 10 MG CAP PO (21:29)
[2017-05-31 05:36] LABS: WHITE BLOOD COUNT 0.8 10^3/ul (4.8-10.8)
[2017-05-31 05:36] LABS: ABNORMAL IP MESSAGE 1; HEMATOCRIT 26.9 % (37.0-47.0); HEMOGLOBIN 9.9 g/dl (12.0-16.0); MEAN CORPUSCULAR HGB CONC 36.8 g/dl (32.0-37.0); MEAN CORPUSCULAR VOLUME 95.1 fl (82.0-101.0); MEAN PLATELET VOLUME 10.5 fl (7.4-10.4); RED BLOOD COUNT 2.83 10^6/ul (4.20-5.40); RED CELL DISTRIBUTION WIDTH 10.6 % (11.5-14.5)
[2017-05-31 05:53] LABS: PLATELET COUNT 20 10^3/UL (140-415); POSITIVE DIFF @See below
[2017-05-31 05:56] LABS: ADD MAN DIFF? YES
[2017-05-31 06:10] LABS: ANION GAP 12 (8-16); BLOOD UREA NITROGEN 9 mg/dl (7-20); CALCIUM 9.1 mg/dl (8.4-10.2); CARBON DIOXIDE 29 mmol/L (21-31); CHLORIDE 103 mmol/L (97-110); CREATININE 0.68 mg/dl (0.44-1.00); GLUCOSE 94 mg/dl (70-220); POTASSIUM 3.3 mmol/L (3.5-5.1); SODIUM 141 mmol/L (135-144)
[2017-05-31] MEDS: FLUCONAZOLE 100 MG TAB PO (08:51)
[2017-05-31] MEDS: ACYCLOVIR 400 MG TAB PO ×2 (08:51→20:47)
[2017-05-31] MEDS: LACTOBACILLUS RHAMNOSUS CAP PO (08:51)
[2017-05-31] MEDS: ALLOPURINOL 100 MG TAB PO (08:52)
[2017-05-31] MEDS: PREDNISOLONE ACET 1% 5 ML OPH BOTH EYES (08:59)
[2017-05-31 10:05] LABS: ANISOCYTOSIS 1+ (0-0); LYMPHOCYTES #M 0.7 10^3/ul (0.8-2.9); LYMPHOCYTES % (M) 98 % (15-51); MICROCYTOSIS 1+ (0-0); PLATELET ESTIMATE SIG DECREASED; POLYCHROMASIA 3+ (0-0); REACTIVE LYMPHOCYTES% (M) 3 % (0-0); SMUDGE%M 4 % (0-0)
[2017-05-31] MEDS: POTASSIUM CHLORIDE (SR) 20 MEQ TAB PO (11:58)
[2017-05-31] MEDS: LEVOFLOXACIN 750MG/D5W (PMX) 150 ML IVPB (12:53)
[2017-06-01 07:06] LABS: WHITE BLOOD COUNT 0.9 10^3/ul (4.8-10.8)
[2017-06-01 07:06] LABS: ABNORMAL IP MESSAGE 1; HEMATOCRIT 25.2 % (37.0-47.0); HEMOGLOBIN 9.2 g/dl (12.0-16.0); MEAN CORPUSCULAR HEMOGLOBIN 34.8 pg (29.0-33.0); MEAN CORPUSCULAR HGB CONC 36.5 g/dl (32.0-37.0); MEAN CORPUSCULAR VOLUME 95.5 fl (82.0-101.0); MEAN PLATELET VOLUME 10.8 fl (7.4-10.4); RED BLOOD COUNT 2.64 10^6/ul (4.20-5.40); RED CELL DISTRIBUTION WIDTH 10.6 % (11.5-14.5)
[2017-06-01 07:17] LABS: ADD MAN DIFF? YES
[2017-06-01 07:21] LABS: ANION GAP 13 (8-16); CARBON DIOXIDE 28 mmol/L (21-31); CHLORIDE 104 mmol/L (97-110); CREATININE 0.68 mg/dl (0.44-1.00); GLUCOSE 95 mg/dl (70-220); MAGNESIUM 1.8 mg/dl (1.7-2.5); PHOSPHORUS 4.8 mg/dl (2.5-4.9); POTASSIUM 3.5 mmol/L (3.5-5.1); SODIUM 141 mmol/L (135-144)
[2017-06-01 08:00] LABS: BLOOD UREA NITROGEN 10 mg/dl (7-20)
[2017-06-01] MEDS: ACYCLOVIR 400 MG TAB PO ×2 (11:46→21:04)
[2017-06-01] MEDS: FLUCONAZOLE 100 MG TAB PO (11:46)
[2017-06-01] MEDS: LACTOBACILLUS RHAMNOSUS CAP PO (11:46)
[2017-06-01] MEDS: ALLOPURINOL 100 MG TAB PO (11:46)
[2017-06-01] MEDS: LEVOFLOXACIN 750MG/D5W (PMX) 150 ML IVPB (13:25)
[2017-06-01 13:30] LABS: LYMPHOCYTES # 0.9 10^3/ul (0.8-2.9); LYMPHOCYTES #M 0.8 10^3/ul (0.8-2.9); LYMPHOCYTES % (M) 98 % (15-51); MONOCYTES % (M) 2 % (0-11)
[2017-06-01 13:31] LABS: ANISOCYTOSIS 1+ (0-0); BURR CELLS FEW; HYPOCHROMASIA 1+ (0-0)
[2017-06-01 13:32] LABS: PLATELET COUNT 17 10^3/UL (140-415)
[2017-06-01] MEDS: FLUOXETINE 10 MG CAP PO (21:04)
[2017-06-02 04:56] LABS: ABNORMAL IP MESSAGE 1; HEMATOCRIT 24.2 % (37.0-47.0); HEMOGLOBIN 9.1 g/dl (12.0-16.0); MEAN CORPUSCULAR HEMOGLOBIN 35.1 pg (29.0-33.0); MEAN CORPUSCULAR VOLUME 93.4 fl (82.0-101.0); MEAN PLATELET VOLUME 10.1 fl (7.4-10.4); RED BLOOD COUNT 2.59 10^6/ul (4.20-5.40); RED CELL DISTRIBUTION WIDTH 10.6 % (11.5-14.5)
[2017-06-02 04:56] LABS: WHITE BLOOD COUNT 0.7 10^3/ul (4.8-10.8)
[2017-06-02 05:17] LABS: MEAN CORPUSCULAR HGB CONC 37.6 g/dl (32.0-37.0); POSITIVE DIFF @See below
[2017-06-02 05:21] LABS: ADD MAN DIFF? YES; PLATELET COUNT 11 10^3/UL (140-415)
[2017-06-02 05:22] LABS: ANION GAP 11 (8-16); BLOOD UREA NITROGEN 9 mg/dl (7-20); CALCIUM 9.4 mg/dl (8.4-10.2); CARBON DIOXIDE 30 mmol/L (21-31); CHLORIDE 103 mmol/L (97-110); CREATININE 0.65 mg/dl (0.44-1.00); GLUCOSE 100 mg/dl (70-220); POTASSIUM 3.4 mmol/L (3.5-5.1); SODIUM 141 mmol/L (135-144)
[2017-06-02 07:22] LABS: ANISOCYTOSIS 1+ (0-0); LYMPHOCYTES #M 0.7 10^3/ul (0.8-2.9); LYMPHOCYTES % (M) 100 % (15-51); MICROCYTOSIS 1+ (0-0); PLATELET ESTIMATE SIG DECREASED; POLYCHROMASIA 2+ (0-0); SMUDGE%M 1 % (0-0)
[2017-06-02] MEDS: SOD CHLORIDE 0.9% 1,000 ML IV ×2 (08:48→23:31)
[2017-06-02] MEDS: ALLOPURINOL 100 MG TAB PO (09:39)
[2017-06-02] MEDS: ACYCLOVIR 400 MG TAB PO ×2 (09:39→20:51)
[2017-06-02] MEDS: CEFEPIME 1GM/50 ML (PMX) 50 ML IVPB ×2 (09:39→20:52)
[2017-06-02] MEDS: LACTOBACILLUS RHAMNOSUS CAP PO (09:39)
[2017-06-02] MEDS: FLUCONAZOLE 100 MG TAB PO (09:39)
[2017-06-02 10:10] LABS: TYPE AND SCREEN 1
[2017-06-02] MEDS: POTASSIUM CHLORIDE (SR) 10 MEQ TAB PO (13:47)
[2017-06-02] MEDS: HYDROCORTISONE 0.5% 28.35 GM CR TOP (17:37)
[2017-06-03 05:36] LABS: WHITE BLOOD COUNT 0.8 10^3/ul (4.8-10.8)
[2017-06-03 05:36] LABS: ABNORMAL IP MESSAGE 1; HEMATOCRIT 15.5 % (37.0-47.0); MEAN CORPUSCULAR HEMOGLOBIN 34.1 pg (29.0-33.0); MEAN CORPUSCULAR HGB CONC 36.1 g/dl (32.0-37.0); MEAN CORPUSCULAR VOLUME 94.5 fl (82.0-101.0); MEAN PLATELET VOLUME 9.6 fl (7.4-10.4); RED BLOOD COUNT 1.64 10^6/ul (4.20-5.40); RED CELL DISTRIBUTION WIDTH 10.6 % (11.5-14.5)
[2017-06-03 05:54] LABS: ANION GAP 12 (8-16); BLOOD UREA NITROGEN 9 mg/dl (7-20); CALCIUM 8.8 mg/dl (8.4-10.2); CARBON DIOXIDE 27 mmol/L (21-31); CHLORIDE 106 mmol/L (97-110); CREATININE 0.62 mg/dl (0.44-1.00); GLUCOSE 91 mg/dl (70-220); POTASSIUM 3.3 mmol/L (3.5-5.1); SODIUM 142 mmol/L (135-144)
[2017-06-03 06:20] LABS: POSITIVE DIFF @See below
[2017-06-03 06:21] LABS: ADD MAN DIFF? YES; HEMOGLOBIN 5.6 g/dl (12.0-16.0); PATH REVIEW? YES; PLATELET COUNT 48 10^3/UL (140-415)
[2017-06-03] MEDS: SOD CHLORIDE 0.9% 500 ML IV ×2 (07:44→09:49)
[2017-06-03 07:58] LABS: ANISOCYTOSIS 2+ (0-0); LYMPHOCYTES #M 0.8 10^3/ul (0.8-2.9); LYMPHOCYTES % (M) 100 % (15-51); MICROCYTOSIS 2+ (0-0); PLATELET ESTIMATE SIG DECREASED; POLYCHROMASIA 1+ (0-0)
[2017-06-03] MEDS: ACYCLOVIR 400 MG TAB PO ×2 (08:35→21:28)
[2017-06-03] MEDS: LACTOBACILLUS RHAMNOSUS CAP PO (08:35)
[2017-06-03] MEDS: CEFEPIME 1GM/50 ML (PMX) 50 ML IVPB ×2 (08:35→21:34)
[2017-06-03] MEDS: FLUCONAZOLE 100 MG TAB PO (08:35)
[2017-06-03] MEDS: ALLOPURINOL 100 MG TAB PO (08:35)
[2017-06-03 11:35] LABS: IMMEDIATE SPIN CROSSMATCH 1 5
[2017-06-03] MEDS: SOD CHLORIDE 0.9% 1,000 ML IV ×2 (13:36→22:36)
[2017-06-03 20:26] LABS: HEMATOCRIT 31.3 % (37.0-47.0); HEMOGLOBIN 11.4 g/dl (12.0-16.0)
[2017-06-03] MEDS: FLUOXETINE 10 MG CAP PO (21:28)
[2017-06-04 05:38] LABS: ABNORMAL IP MESSAGE 1; HEMATOCRIT 30.1 % (37.0-47.0); HEMOGLOBIN 10.8 g/dl (12.0-16.0); MEAN CORPUSCULAR HGB CONC 35.9 g/dl (32.0-37.0); MEAN PLATELET VOLUME 9.7 fl (7.4-10.4); PLATELET COUNT 31 10^3/UL (140-415); RED BLOOD COUNT 3.27 10^6/ul (4.20-5.40); RED CELL DISTRIBUTION WIDTH 11.7 % (11.5-14.5)
[2017-06-04 05:38] LABS: WHITE BLOOD COUNT 0.8 10^3/ul (4.8-10.8)
[2017-06-04 06:06] LABS: ANION GAP 11 (8-16); BLOOD UREA NITROGEN 9 mg/dl (7-20); CALCIUM 8.8 mg/dl (8.4-10.2); CARBON DIOXIDE 29 mmol/L (21-31); CHLORIDE 105 mmol/L (97-110); CREATININE 0.63 mg/dl (0.44-1.00); GLUCOSE 91 mg/dl (70-220); POTASSIUM 3.4 mmol/L (3.5-5.1); SODIUM 142 mmol/L (135-144)
[2017-06-04 06:49] LABS: ADD MAN DIFF? YES; POSITIVE DIFF @See below
[2017-06-04 07:56] LABS: LYMPHOCYTES #M 0.7 10^3/ul (0.8-2.9); LYMPHOCYTES % (M) 99 % (15-51); MONOCYTES % (M) 1 % (0-11); PLATELET ESTIMATE SIG DECREASED; SMUDGE%M 4 % (0-0)
[2017-06-04] MEDS: ACYCLOVIR 400 MG TAB PO ×2 (12:10→20:34)
[2017-06-04] MEDS: LACTOBACILLUS RHAMNOSUS CAP PO (12:10)
[2017-06-04] MEDS: FLUCONAZOLE 100 MG TAB PO (12:10)
[2017-06-04] MEDS: ALLOPURINOL 100 MG TAB PO (12:10)
[2017-06-04] MEDS: CEFEPIME 1GM/50 ML (PMX) 50 ML IVPB ×2 (12:36→20:34)
[2017-06-04] MEDS: PREDNISOLONE ACET 1% 5 ML OPH BOTH EYES ×2 (16:18→20:35)
[2017-06-04] MEDS: SOD CHLORIDE 0.9% 1,000 ML IV (18:12)
[2017-06-05 05:25] LABS: ABNORMAL IP MESSAGE 1; HEMATOCRIT 28.3 % (37.0-47.0); HEMOGLOBIN 10.3 g/dl (12.0-16.0); MEAN CORPUSCULAR HEMOGLOBIN 33.1 pg (29.0-33.0); MEAN CORPUSCULAR HGB CONC 36.4 g/dl (32.0-37.0); MEAN PLATELET VOLUME 10.5 fl (7.4-10.4); RED BLOOD COUNT 3.11 10^6/ul (4.20-5.40); RED CELL DISTRIBUTION WIDTH 11.5 % (11.5-14.5)
[2017-06-05 05:25] LABS: WHITE BLOOD COUNT 0.8 10^3/ul (4.8-10.8)
[2017-06-05] MEDS: SOD CHLORIDE 0.9% 1,000 ML IV ×2 (05:57→19:00)
[2017-06-05 06:03] LABS: ANION GAP 11 (8-16); BLOOD UREA NITROGEN 10 mg/dl (7-20); CALCIUM 8.5 mg/dl (8.4-10.2); CARBON DIOXIDE 27 mmol/L (21-31); CHLORIDE 108 mmol/L (97-110); CREATININE 0.58 mg/dl (0.44-1.00); GLUCOSE 106 mg/dl (70-220); POTASSIUM 3.5 mmol/L (3.5-5.1); SODIUM 142 mmol/L (135-144)
[2017-06-05 06:51] LABS: POSITIVE DIFF @See below
[2017-06-05 06:53] LABS: ADD MAN DIFF? YES; PLATELET COUNT 21 10^3/UL (140-415)
[2017-06-05 08:27] LABS: ANISOCYTOSIS 1+ (0-0); LYMPHOCYTES #M 0.8 10^3/ul (0.8-2.9); LYMPHOCYTES % (M) 100 % (15-51); MICROCYTOSIS 1+ (0-0); PLATELET ESTIMATE SIG DECREASED; POLYCHROMASIA 1+ (0-0); SMUDGE%M 7 % (0-0)
[2017-06-05] MEDS: ALLOPURINOL 100 MG TAB PO (10:47)
[2017-06-05] MEDS: FLUCONAZOLE 100 MG TAB PO (10:47)
[2017-06-05] MEDS: CEFEPIME 1GM/50 ML (PMX) 50 ML IVPB ×2 (10:47→21:16)
[2017-06-05] MEDS: LACTOBACILLUS RHAMNOSUS CAP PO (10:47)
[2017-06-05] MEDS: PREDNISOLONE ACET 1% 5 ML OPH BOTH EYES ×2 (10:47→21:16)
[2017-06-05] MEDS: ACYCLOVIR 400 MG TAB PO ×2 (10:47→21:16)
[2017-06-05] MEDS: FLUOXETINE 10 MG CAP PO (21:16)
[2017-06-06 05:39] LABS: WHITE BLOOD COUNT 0.8 10^3/ul (4.8-10.8)
[2017-06-06 05:39] LABS: ABNORMAL IP MESSAGE 1; HEMATOCRIT 29.2 % (37.0-47.0); HEMOGLOBIN 10.6 g/dl (12.0-16.0); MEAN CORPUSCULAR HGB CONC 36.3 g/dl (32.0-37.0); MEAN PLATELET VOLUME 10.2 fl (7.4-10.4); RED BLOOD COUNT 3.21 10^6/ul (4.20-5.40)
[2017-06-06 06:01] LABS: ANION GAP 13 (8-16); BLOOD UREA NITROGEN 7 mg/dl (7-20); CALCIUM 8.7 mg/dl (8.4-10.2); CARBON DIOXIDE 28 mmol/L (21-31); CHLORIDE 104 mmol/L (97-110); CREATININE 0.55 mg/dl (0.44-1.00); GLUCOSE 90 mg/dl (70-220); POTASSIUM 3.5 mmol/L (3.5-5.1); SODIUM 141 mmol/L (135-144)
[2017-06-06 06:10] LABS: PLATELET COUNT 18 10^3/UL (140-415); POSITIVE DIFF @See below
[2017-06-06 06:11] LABS: ADD MAN DIFF? YES
[2017-06-06 08:17] LABS: LYMPHOCYTES #M 0.8 10^3/ul (0.8-2.9); LYMPHOCYTES % (M) 100 % (15-51); PLATELET ESTIMATE SIG DECREASED; SMUDGE%M 4 % (0-0)
[2017-06-06] MEDS: LACTOBACILLUS RHAMNOSUS CAP PO (12:49)
[2017-06-06] MEDS: ACYCLOVIR 400 MG TAB PO ×2 (12:49→21:40)
[2017-06-06] MEDS: FLUCONAZOLE 100 MG TAB PO (12:49)
[2017-06-06] MEDS: ALLOPURINOL 100 MG TAB PO (12:49)
[2017-06-06] MEDS: CEFEPIME 1GM/50 ML (PMX) 50 ML IVPB ×2 (12:50→21:40)
[2017-06-06] MEDS: SOD CHLORIDE 0.9% 1,000 ML IV ×2 (12:50→21:54)
[2017-06-06] MEDS: PREDNISOLONE ACET 1% 5 ML OPH BOTH EYES ×2 (12:50→21:40)
[2017-06-07 05:42] LABS: ABNORMAL IP MESSAGE 1; HEMATOCRIT 28.6 % (37.0-47.0); HEMOGLOBIN 10.2 g/dl (12.0-16.0); MEAN CORPUSCULAR HEMOGLOBIN 32.7 pg (29.0-33.0); MEAN CORPUSCULAR HGB CONC 35.7 g/dl (32.0-37.0); MEAN CORPUSCULAR VOLUME 91.7 fl (82.0-101.0); MEAN PLATELET VOLUME 10.5 fl (7.4-10.4); RED BLOOD COUNT 3.12 10^6/ul (4.20-5.40); RED CELL DISTRIBUTION WIDTH 10.8 % (11.5-14.5)
[2017-06-07 05:54] LABS: POSITIVE DIFF @See below
[2017-06-07 05:55] LABS: ADD MAN DIFF? YES
[2017-06-07 05:56] LABS: PLATELET COUNT 13 10^3/UL (140-415)
[2017-06-07 06:29] LABS: ALANINE AMINOTRANSFERASE 23 IU/L (13-69); ALBUMIN 3.4 g/dl (3.3-4.9); ALBUMIN/GLOBULIN RATIO 1.41; ALKALINE PHOSPHATASE 75 IU/L (42-121); ANION GAP 12 (8-16); ASPARTATE AMINO TRANSFERASE 16 IU/L (15-46); BILIRUBIN,INDIRECT 0.2 mg/dl (0-1.1); BILIRUBIN,TOTAL 0.2 mg/dl (0.2-1.3); BLOOD UREA NITROGEN 6 mg/dl (7-20); CARBON DIOXIDE 27 mmol/L (21-31); CHLORIDE 106 mmol/L (97-110); CREATININE 0.55 mg/dl (0.44-1.00); GLUCOSE 82 mg/dl (70-220); POTASSIUM 3.5 mmol/L (3.5-5.1); SODIUM 141 mmol/L (135-144); TOTAL PROTEIN 5.8 g/dl (6.1-8.1)
[2017-06-07 06:31] LABS: CALCIUM 8.6 mg/dl (8.4-10.2)
[2017-06-07 06:42] LABS: PHOSPHORUS 4.5 mg/dl (2.5-4.9)
[2017-06-07 06:42] LABS: MAGNESIUM 1.7 mg/dl (1.7-2.5)
[2017-06-07] MEDS: PREDNISOLONE ACET 1% 5 ML OPH BOTH EYES ×2 (08:37→21:00)
[2017-06-07] MEDS: CEFEPIME 1GM/50 ML (PMX) 50 ML IVPB ×2 (08:37→21:15)
[2017-06-07] MEDS: ALLOPURINOL 100 MG TAB PO (08:38)
[2017-06-07] MEDS: LACTOBACILLUS RHAMNOSUS CAP PO (08:38)
[2017-06-07] MEDS: FLUCONAZOLE 100 MG TAB PO (08:38)
[2017-06-07] MEDS: ACYCLOVIR 400 MG TAB PO ×2 (08:38→21:14)
[2017-06-07 11:18] LABS: TYPE AND SCREEN 1 1
[2017-06-07] MEDS: SOD CHLORIDE 0.9% 1,000 ML IV (13:16)
[2017-06-07] MEDS: FLUOXETINE 10 MG CAP PO (21:14)
[2017-06-08 05:15] LABS: ABNORMAL IP MESSAGE 1; HEMATOCRIT 27.7 % (37.0-47.0); MEAN CORPUSCULAR HEMOGLOBIN 32.7 pg (29.0-33.0); MEAN CORPUSCULAR HGB CONC 36.1 g/dl (32.0-37.0); MEAN CORPUSCULAR VOLUME 90.5 fl (82.0-101.0); MEAN PLATELET VOLUME 9.6 fl (7.4-10.4); PLATELET COUNT 42 10^3/UL (140-415); RED BLOOD COUNT 3.06 10^6/ul (4.20-5.40); RED CELL DISTRIBUTION WIDTH 10.9 % (11.5-14.5)
[2017-06-08] MEDS: SOD CHLORIDE 0.9% 1,000 ML IV ×2 (05:29→22:30)
[2017-06-08 05:35] LABS: ANION GAP 11 (8-16); BLOOD UREA NITROGEN 5 mg/dl (7-20); CALCIUM 8.9 mg/dl (8.4-10.2); CARBON DIOXIDE 29 mmol/L (21-31); CHLORIDE 106 mmol/L (97-110); CREATININE 0.56 mg/dl (0.44-1.00); GLUCOSE 80 mg/dl (70-220); POSITIVE DIFF @See below; POTASSIUM 3.5 mmol/L (3.5-5.1); SODIUM 142 mmol/L (135-144)
[2017-06-08 05:39] LABS: ADD MAN DIFF? YES
[2017-06-08 05:43] LABS: PHOSPHORUS 4.6 mg/dl (2.5-4.9)
[2017-06-08 05:43] LABS: MAGNESIUM 1.6 mg/dl (1.7-2.5)
[2017-06-08 07:29] LABS: ANISOCYTOSIS 1+ (0-0); BAND NEUTROPHILS % (M) 3 % (0-4); LYMPHOCYTES #M 0.8 10^3/ul (0.8-2.9); LYMPHOCYTES % (M) 82 % (15-51); MICROCYTOSIS 1+ (0-0); MONOCYTE #M 0.1 10^3/ul (0.3-0.9); MONOCYTES % (M) 11 % (0-11); MYELOCYTES % (M) 2 % (0-0); PLATELET ESTIMATE DECREASED; POLYCHROMASIA 1+ (0-0); PROMYELOCYTES % (M) 1 % (0-0); SEGMENTED NEUTROPHILS (M) % 1 % (39-77)
[2017-06-08] MEDS: LACTOBACILLUS RHAMNOSUS CAP PO (09:31)
[2017-06-08] MEDS: CEFEPIME 1GM/50 ML (PMX) 50 ML IVPB ×2 (09:31→23:46)
[2017-06-08] MEDS: PREDNISOLONE ACET 1% 5 ML OPH BOTH EYES ×2 (09:31→23:45)
[2017-06-08] MEDS: FLUCONAZOLE 100 MG TAB PO (09:31)
[2017-06-08] MEDS: ALLOPURINOL 100 MG TAB PO (09:32)
[2017-06-08] MEDS: ACYCLOVIR 400 MG TAB PO ×2 (09:32→23:45)
[2017-06-08] MEDS: MAGNESIUM SULFATE 2 GM/50 ML 50 ML IVPB (11:21)
[2017-06-09 05:42] LABS: ABNORMAL IP MESSAGE 1; HEMATOCRIT 27.9 % (37.0-47.0); MEAN CORPUSCULAR HEMOGLOBIN 32.7 pg (29.0-33.0); MEAN CORPUSCULAR HGB CONC 35.8 g/dl (32.0-37.0); MEAN CORPUSCULAR VOLUME 91.2 fl (82.0-101.0); MEAN PLATELET VOLUME 9.5 fl (7.4-10.4); PLATELET COUNT 34 10^3/UL (140-415); RED BLOOD COUNT 3.06 10^6/ul (4.20-5.40); RED CELL DISTRIBUTION WIDTH 10.9 % (11.5-14.5)
[2017-06-09 05:42] LABS: WHITE BLOOD COUNT 1.3 10^3/ul (4.8-10.8)
[2017-06-09 05:49] LABS: ADD MAN DIFF? YES; POSITIVE DIFF @See below
[2017-06-09 06:23] LABS: PHOSPHORUS 4.8 mg/dl (2.5-4.9)
[2017-06-09 06:23] LABS: MAGNESIUM 1.9 mg/dl (1.7-2.5)
[2017-06-09 06:32] LABS: ANION GAP 10 (8-16); BLOOD UREA NITROGEN 6 mg/dl (7-20); CALCIUM 8.9 mg/dl (8.4-10.2); CARBON DIOXIDE 30 mmol/L (21-31); CHLORIDE 105 mmol/L (97-110); CREATININE 0.59 mg/dl (0.44-1.00); GLUCOSE 89 mg/dl (70-220); POTASSIUM 3.6 mmol/L (3.5-5.1); SODIUM 141 mmol/L (135-144)
[2017-06-09] MEDS: FLUCONAZOLE 100 MG TAB PO (08:37)
[2017-06-09] MEDS: PREDNISOLONE ACET 1% 5 ML OPH BOTH EYES ×2 (08:38→21:01)
[2017-06-09] MEDS: ACYCLOVIR 400 MG TAB PO ×2 (08:38→21:01)
[2017-06-09] MEDS: ALLOPURINOL 100 MG TAB PO (08:38)
[2017-06-09] MEDS: LACTOBACILLUS RHAMNOSUS CAP PO (08:38)
[2017-06-09] MEDS: CEFEPIME 1GM/50 ML (PMX) 50 ML IVPB ×2 (08:38→21:01)
[2017-06-09 08:44] LABS: ANISOCYTOSIS 2+ (0-0); BAND NEUTROPHILS % (M) 1 % (0-4); LYMPHOCYTES #M 0.9 10^3/ul (0.8-2.9); LYMPHOCYTES % (M) 76 % (15-51); MICROCYTOSIS 2+ (0-0); MONOCYTE #M 0.1 10^3/ul (0.3-0.9); MONOCYTES % (M) 11 % (0-11); PLATELET ESTIMATE SIG DECREASED; POLYCHROMASIA 3+ (0-0); REACTIVE LYMPHOCYTES #M 0.1 10^3/ul (0.0-0.0); REACTIVE LYMPHOCYTES% (M) 9 % (0-0); SEGMENTED NEUTROPHILS (M) % 3 % (39-77); SMUDGE%M 5 % (0-0)
[2017-06-09] MEDS: SOD CHLORIDE 0.9% 1,000 ML IV (12:36)
[2017-06-09] MEDS: FLUOXETINE 10 MG CAP PO (21:01)
[2017-06-10 06:03] LABS: WHITE BLOOD COUNT 1.5 10^3/ul (4.8-10.8)
[2017-06-10 06:03] LABS: ABNORMAL IP MESSAGE 1; HEMATOCRIT 28.9 % (37.0-47.0); HEMOGLOBIN 10.5 g/dl (12.0-16.0); MEAN CORPUSCULAR HEMOGLOBIN 33.2 pg (29.0-33.0); MEAN CORPUSCULAR HGB CONC 36.3 g/dl (32.0-37.0); MEAN CORPUSCULAR VOLUME 91.5 fl (82.0-101.0); MEAN PLATELET VOLUME 9.5 fl (7.4-10.4); PLATELET COUNT 38 10^3/UL (140-415); RED BLOOD COUNT 3.16 10^6/ul (4.20-5.40); RED CELL DISTRIBUTION WIDTH 10.7 % (11.5-14.5)
[2017-06-10 06:26] LABS: PHOSPHORUS 5.1 mg/dl (2.5-4.9)
[2017-06-10 06:26] LABS: MAGNESIUM 1.7 mg/dl (1.7-2.5)
[2017-06-10 06:37] LABS: ANION GAP 11 (8-16); BLOOD UREA NITROGEN 7 mg/dl (7-20); CALCIUM 8.9 mg/dl (8.4-10.2); CARBON DIOXIDE 29 mmol/L (21-31); CHLORIDE 105 mmol/L (97-110); CREATININE 0.58 mg/dl (0.44-1.00); GLUCOSE 86 mg/dl (70-220); POTASSIUM 3.5 mmol/L (3.5-5.1); SODIUM 141 mmol/L (135-144)
[2017-06-10 06:46] LABS: ADD MAN DIFF? YES; POSITIVE DIFF @See below
[2017-06-10 08:54] LABS: ANISOCYTOSIS 2+ (0-0); BAND NEUTROPHILS #M 0.1 10^3/ul (0.0-0.6); BAND NEUTROPHILS % (M) 7 % (0-4); LYMPHOCYTES % (M) 70 % (15-51); MICROCYTOSIS 2+ (0-0); MONOCYTE #M 0.2 10^3/ul (0.3-0.9); MONOCYTES % (M) 15 % (0-11); PLATELET ESTIMATE DECREASED; POLYCHROMASIA 3+ (0-0); REACTIVE LYMPHOCYTES% (M) 2 % (0-0); SEG NEUT #M 0.1 10^3/ul (1.6-7.5); SEGMENTED NEUTROPHILS (M) % 6 % (39-77); SMUDGE%M 4 % (0-0)
[2017-06-10] MEDS: LACTOBACILLUS RHAMNOSUS CAP PO (08:55)
[2017-06-10] MEDS: ALLOPURINOL 100 MG TAB PO (08:55)
[2017-06-10] MEDS: PREDNISOLONE ACET 1% 5 ML OPH BOTH EYES ×2 (08:55→21:00)
[2017-06-10] MEDS: ACYCLOVIR 400 MG TAB PO ×2 (08:55→21:00)
[2017-06-10] MEDS: FLUCONAZOLE 100 MG TAB PO (08:55)
[2017-06-10] MEDS: CEFEPIME 1GM/50 ML (PMX) 50 ML IVPB ×2 (09:02→21:00)
[2017-06-10 10:15] LABS: ABNORMAL IP MESSAGE 1; HEMATOCRIT 27.9 % (37.0-47.0); HEMOGLOBIN 10.2 g/dl (12.0-16.0); MEAN CORPUSCULAR HEMOGLOBIN 33.2 pg (29.0-33.0); MEAN CORPUSCULAR HGB CONC 36.6 g/dl (32.0-37.0); MEAN CORPUSCULAR VOLUME 90.9 fl (82.0-101.0); MEAN PLATELET VOLUME 9.9 fl (7.4-10.4); PLATELET COUNT 33 10^3/UL (140-415); RED BLOOD COUNT 3.07 10^6/ul (4.20-5.40); RED CELL DISTRIBUTION WIDTH 10.9 % (11.5-14.5)
[2017-06-10 10:15] LABS: WHITE BLOOD COUNT 1.6 10^3/ul (4.8-10.8)
[2017-06-10 10:22] LABS: ADD MAN DIFF? YES; POSITIVE DIFF @See below
[2017-06-10 11:05] LABS: ANISOCYTOSIS 2+ (0-0); BAND NEUTROPHILS % (M) 4 % (0-4); LYMPHOCYTES #M 0.9 10^3/ul (0.8-2.9); LYMPHOCYTES % (M) 59 % (15-51); MICROCYTOSIS 2+ (0-0); MONOCYTE #M 0.4 10^3/ul (0.3-0.9); MONOCYTES % (M) 28 % (0-11); PLATELET ESTIMATE SIG DECREASED; POLYCHROMASIA 1+ (0-0); SEG NEUT #M 0.1 10^3/ul (1.6-7.5); SEGMENTED NEUTROPHILS (M) % 9 % (39-77)
[2017-06-10 11:36] LABS: TYPE AND SCREEN 1 1
[2017-06-10 14:37] LABS: WHITE BLOOD COUNT 1.2 10^3/ul (4.8-10.8)
[2017-06-10 14:37] LABS: ABNORMAL IP MESSAGE 1; HEMATOCRIT 27.9 % (37.0-47.0); HEMOGLOBIN 10.1 g/dl (12.0-16.0); MEAN CORPUSCULAR HEMOGLOBIN 33.3 pg (29.0-33.0); MEAN CORPUSCULAR HGB CONC 36.2 g/dl (32.0-37.0); MEAN CORPUSCULAR VOLUME 92.1 fl (82.0-101.0); MEAN PLATELET VOLUME 8.9 fl (7.4-10.4); PLATELET COUNT 83 10^3/UL (140-415); RED BLOOD COUNT 3.03 10^6/ul (4.20-5.40); RED CELL DISTRIBUTION WIDTH 10.9 % (11.5-14.5)
[2017-06-10 14:48] LABS: ADD MAN DIFF? YES; POSITIVE DIFF @See below
[2017-06-10] MEDS ORDERED: HYDROCORTISONE IT (15:00)
[2017-06-10] MEDS ORDERED: METHOTREXATE IT (15:00)
[2017-06-10] MEDS ORDERED: SOD CHLORIDE 0.9% IT (15:00)
[2017-06-10 15:36] LABS: ANISOCYTOSIS 1+ (0-0); BAND NEUTROPHILS % (M) 3 % (0-4); LYMPHOCYTES #M 0.8 10^3/ul (0.8-2.9); LYMPHOCYTES % (M) 68 % (15-51); METAMYELOCYTES %M 4 % (0-0); MICROCYTOSIS 1+ (0-0); MONOCYTE #M 0.1 10^3/ul (0.3-0.9); MONOCYTES % (M) 11 % (0-11); MYELOCYTES % (M) 1 % (0-0); PLATELET ESTIMATE DECREASED; POLYCHROMASIA 1+ (0-0); REACTIVE LYMPHOCYTES% (M) 2 % (0-0); SEG NEUT #M 0.1 10^3/ul (1.6-7.5); SEGMENTED NEUTROPHILS (M) % 11 % (39-77); SMUDGE%M 12 % (0-0)
[2017-06-11 04:58] LABS: WHITE BLOOD COUNT 1.4 10^3/ul (4.8-10.8)
[2017-06-11 04:58] LABS: ABNORMAL IP MESSAGE 1; HEMATOCRIT 27.7 % (37.0-47.0); MEAN CORPUSCULAR HGB CONC 36.1 g/dl (32.0-37.0); MEAN CORPUSCULAR VOLUME 91.4 fl (82.0-101.0); MEAN PLATELET VOLUME 9.9 fl (7.4-10.4); PLATELET COUNT 81 10^3/UL (140-415); RED BLOOD COUNT 3.03 10^6/ul (4.20-5.40); RED CELL DISTRIBUTION WIDTH 10.9 % (11.5-14.5)
[2017-06-11 05:18] LABS: ADD MAN DIFF? YES; POSITIVE DIFF @See below
[2017-06-11 05:27] LABS: MAGNESIUM 1.9 mg/dl (1.7-2.5)
[2017-06-11 05:32] LABS: ANION GAP 10 (8-16); BLOOD UREA NITROGEN 9 mg/dl (7-20); CARBON DIOXIDE 31 mmol/L (21-31); CHLORIDE 105 mmol/L (97-110); CREATININE 0.55 mg/dl (0.44-1.00); GLUCOSE 108 mg/dl (70-220); POTASSIUM 4.1 mmol/L (3.5-5.1); SODIUM 142 mmol/L (135-144)
[2017-06-11] MEDS: ALLOPURINOL 100 MG TAB PO (09:43)
[2017-06-11] MEDS: ACYCLOVIR 400 MG TAB PO (09:43)
[2017-06-11] MEDS: FLUCONAZOLE 100 MG TAB PO (09:43)
[2017-06-11] MEDS: LACTOBACILLUS RHAMNOSUS CAP PO (09:43)
[2017-06-11] MEDS: PREDNISOLONE ACET 1% 5 ML OPH BOTH EYES (09:43)
[2017-06-11] MEDS: CEFEPIME 1GM/50 ML (PMX) 50 ML IVPB (09:43)
[2017-06-11 10:04] LABS: BAND NEUTROPHILS % (M) 5 % (0-4); GIANT THROMBO% (M) 5 % (0-0); LYMPHOCYTES #M 0.8 10^3/ul (0.8-2.9); LYMPHOCYTES % (M) 61 % (15-51); MONOCYTE #M 0.2 10^3/ul (0.3-0.9); MONOCYTES % (M) 17 % (0-11); OVALOCYTES 1+ (0-0); PLATELET ESTIMATE DECREASED; SEG NEUT #M 0.2 10^3/ul (1.6-7.5); SEGMENTED NEUTROPHILS (M) % 16 % (39-77); SMUDGE%M 6 % (0-0)
== END 2017-06-11 13:40 | disposition home or self-care (01) | DRG 837 ==
LOC: MS1 10:02
PROC: 02H633Z Insertion of Infusion Device into Right Atrium, Percutaneous Approach (ICD-10-PCS; 2017-05-15)
PROC: XW033B3 Introduction of Cytarabine and Daunorubicin Liposome Antineoplastic into Peripheral Vein, Percutaneous Approach, New Technology Group 3 (ICD-10-PCS; 2017-05-16)
PROC: 07DR3ZX Extraction of Iliac Bone Marrow, Percutaneous Approach, Diagnostic (ICD-10-PCS; 2017-05-17)
PROC: 3E0R305 Introduction of Other Antineoplastic into Spinal Canal, Percutaneous Approach (ICD-10-PCS; principal; 2017-05-18)
PROC: 30233R1 Transfusion of Nonautologous Platelets into Peripheral Vein, Percutaneous Approach (ICD-10-PCS; 2017-05-28)
PROC: 30233N1 Transfusion of Nonautologous Red Blood Cells into Peripheral Vein, Percutaneous Approach (ICD-10-PCS; 2017-06-03)
PROC: 3E0R305 Introduction of Other Antineoplastic into Spinal Canal, Percutaneous Approach (ICD-10-PCS; 2017-06-10)
DX: Z51.11 Encounter for antineoplastic chemotherapy (principal); D61.810 Antineoplastic chemotherapy induced pancytopenia; C92.00 Acute myeloblastic leukemia, not having achieved remission; I95.9 Hypotension, unspecified; C92.01 Acute myeloblastic leukemia, in remission; E83.42 Hypomagnesemia; E87.6 Hypokalemia; H10.219 Acute toxic conjunctivitis, unspecified eye; R05 Cough; K08.89 Other specified disorders of teeth and supporting structures
CPT/HCPCS: 36430; 36569; 71045; 71046; 76937; 77012; 80048; 80053; 82150; 83690; 83735; 84100; 84702; 85014; 85018; 85025; 85610; 85730; 86644; 86850; 86900; 86901; 86920; 86945; 88305; 88311; 88313; J9100

== ENCOUNTER 2017-07-18 07:55 | Day surgery (SDC) | payer OTHER ==
[2017-07-18] MEDS ORDERED: SOD CHLORIDE 0.9% IT (10:00)
[2017-07-18] MEDS ORDERED: HYDROCORTISONE IT (10:00)
[2017-07-18] MEDS ORDERED: METHOTREXATE IT (10:00)
== END 2017-07-18 11:30 | disposition home or self-care (01) ==
LOC: SDS 07:55
DX: C85.89 Other specified types of non-Hodgkin lymphoma, extranodal and solid organ sites (principal)
CPT/HCPCS: 62270; 96450

== ENCOUNTER → 2017-10-28 | Outpatient (CLI) | payer OTHER, BC ==
[~2017-10-28] MED LIST: HYDROCORTISONE IT; LIDOCAINE 1% (MDV) 10 ML INJ; METHOTREXATE IT; SOD CHLORIDE 0.9% 1,000 ML IV; SOD CHLORIDE 0.9% IT
== END | disposition home or self-care (01) ==
LOC: SDS 10:36 → RAD 08:00
DX: C92.01 Acute myeloblastic leukemia, in remission (principal)
CPT/HCPCS: 96450

== ENCOUNTER 2017-11-07 11:02 | Observation (INO) | payer BC ==
[2017-11-07 12:02] LABS: ADD MAN DIFF? NO
[2017-11-07 12:03] LABS: WHITE BLOOD COUNT 3.6 10^3/ul (4.8-10.8)
[2017-11-07 12:03] LABS: BASOPHILS % 1.1 % (0.0-2.0); EOSINOPHILS # 0.1 10^3/ul (0.0-0.5); EOSINOPHILS % 2.8 % (0.0-7.0); HEMATOCRIT 34.4 % (37.0-47.0); LYMPHOCYTES # 0.8 10^3/ul (0.8-2.9); LYMPHOCYTES % 21.1 % (15.0-51.0); MEAN CORPUSCULAR HEMOGLOBIN 36.3 pg (29.0-33.0); MEAN CORPUSCULAR HGB CONC 34.9 g/dl (32.0-37.0); MEAN CORPUSCULAR VOLUME 103.9 fl (82.0-101.0); MONOCYTE # 0.4 10^3/ul (0.3-0.9); MONOCYTES % 10.2 % (0.0-11.0); NEUTROPHIL # 2.3 10^3/ul (1.6-7.5); NEUTROPHILS % 63.7 % (39.0-77.0); PLATELET COUNT 131 10^3/UL (140-415); RED BLOOD COUNT 3.31 10^6/ul (4.20-5.40); RED CELL DISTRIBUTION WIDTH 11.4 % (11.5-14.5)
[2017-11-07 12:22] LABS: ANION GAP 11 (8-16); BLOOD UREA NITROGEN 11 mg/dl (7-20); CALCIUM 8.9 mg/dl (8.4-10.2); CARBON DIOXIDE 30 mmol/L (21-31); CHLORIDE 105 mmol/L (97-110); CREATININE 0.74 mg/dl (0.44-1.00); GLUCOSE 80 mg/dl (70-220); POTASSIUM 4.6 mmol/L (3.5-5.1); SODIUM 141 mmol/L (135-144)
[2017-11-07 12:24] LABS: INR 0.98; PROTIME 13.1 Sec (11.9-14.9)
[2017-11-07 12:25] LABS: PARTIAL THROMBOPLASTIN TIME 25.4 Sec (25.0-35.0)
[2017-11-07 12:32] LABS: URINE BLOOD (Dip) POC Negative (NEGATIVE); URINE GLUCOSE (Dip) POC Negative (NEGATIVE); URINE KETONES (Dip) POC Negative (NEGATIVE); URINE LEUKOCYTE EST (Dip) POC Negative (NEGATIVE); URINE NITRITE (Dip) POC Negative (NEGATIVE); URINE TOTAL PROTEIN POC Negative (NEGATIVE)
[2017-11-07] MEDS: ACETAMINOPHEN 325 MG TAB PO (13:09)
[2017-11-07] MEDS ORDERED: morphine 2 MG INJ IV (18:30)
[2017-11-07] MEDS ORDERED: NACL 0.9% 3 ML SYG IV (18:30)
[2017-11-07] MEDS ORDERED: HYDROCODONE/APAP (5/325) TAB PO (18:30)
[2017-11-08] MEDS: SOD CHLORIDE 0.9% 1,000 ML IV (00:46)
[2017-11-08] MEDS: ACETAMINOPHEN 325 MG TAB PO (13:34)
[2017-11-08] MEDS ORDERED: morphine LIQ (10 MG/5 ML) CUP PO (14:30)
[2017-11-08] MEDS ORDERED: LIDOCAINE 1% (MDV) 10 ML INJ (15:47)
== END 2017-11-08 19:00 | disposition home or self-care (01) ==
LOC: MS1 18:21 → E/R 11:02
DX: G44.40 Drug-induced headache, not elsewhere classified, not intractable (principal); T45.1X5A Adverse effect of antineoplastic and immunosuppressive drugs, initial encounter; C92.00 Acute myeloblastic leukemia, not having achieved remission
CPT/HCPCS: 36415; 71045; 80048; 81003; 81025; 85025; 85610; 85730; 99285-25

== ENCOUNTER 2018-01-28 19:41 | Inpatient (IN) | payer BC ==
[2018-01-28] MEDS: ONDANSETRON 4 MG INJ IV (21:22)
[2018-01-28] MEDS: SOD CHLORIDE 0.9% 1,000 ML IV (21:22)
[2018-01-28] MEDS: HYDROmorphONE 1 MG/ML SYG IV (21:24)
[2018-01-28 21:33] LABS: ADD MAN DIFF? NO
[2018-01-28 21:36] LABS: WHITE BLOOD COUNT 9.2 10^3/ul (4.8-10.8)
[2018-01-28 21:36] LABS: BASOPHIL # 0.1 10^3/ul (0.0-0.1); BASOPHILS % 0.5 % (0.0-2.0); HEMATOCRIT 36.4 % (37.0-47.0); HEMOGLOBIN 13.1 g/dl (12.0-16.0); LYMPHOCYTES # 0.7 10^3/ul (0.8-2.9); LYMPHOCYTES % 7.3 % (15.0-51.0); MEAN PLATELET VOLUME 9.3 fl (7.4-10.4); MONOCYTE # 0.5 10^3/ul (0.3-0.9); MONOCYTES % 4.9 % (0.0-11.0); NEUTROPHILS % 86.9 % (39.0-77.0); PLATELET COUNT 181 10^3/UL (140-415); RED BLOOD COUNT 3.64 10^6/ul (4.20-5.40); RED CELL DISTRIBUTION WIDTH 10.9 % (11.5-14.5)
[2018-01-28 21:49] LABS: ANION GAP 15 (8-16); BLOOD UREA NITROGEN 10 mg/dl (7-20); CALCIUM 9.4 mg/dl (8.4-10.2); CARBON DIOXIDE 29 mmol/L (21-31); CHLORIDE 97 mmol/L (97-110); CREATININE 0.68 mg/dl (0.44-1.00); GLUCOSE 121 mg/dl (70-220); POTASSIUM 4.2 mmol/L (3.5-5.1); SODIUM 137 mmol/L (135-144)
[2018-01-28 21:53] LABS: INR 0.96; PROTIME 12.9 Sec (11.9-14.9)
[2018-01-28] MEDS ORDERED: ONDANSETRON 4 MG INJ IV (23:30)
[2018-01-29] MEDS: HYDROmorphONE 1 MG/ML SYG IV ×6 (00:02→21:18)
[2018-01-29] MEDS: HEPARIN 5,000 UNIT/0.5 ML VIAL SC ×3 (00:52→21:13)
[2018-01-29] MEDS: morphine 2 MG INJ IV (04:07)
[2018-01-29] MEDS: HYDROCODONE/APAP (5/325) TAB PO (06:59)
[2018-01-29] MEDS: NEOMYC/POLYMYX/BACIT 30 GM OINT TOP ×2 (13:47→21:11)
[2018-01-30] MEDS: HYDROmorphONE 1 MG/ML SYG IV ×6 (02:29→21:06)
[2018-01-30] MEDS: NEOMYC/POLYMYX/BACIT 30 GM OINT TOP ×3 (09:26→21:05)
[2018-01-30] MEDS: HEPARIN 5,000 UNIT/0.5 ML VIAL SC ×2 (09:27→21:10)
[2018-01-31] MEDS: HYDROmorphONE 1 MG/ML SYG IV ×6 (01:54→22:51)
[2018-01-31] MEDS: NEOMYC/POLYMYX/BACIT 30 GM OINT TOP ×3 (09:15→21:06)
[2018-01-31] MEDS: HEPARIN 5,000 UNIT/0.5 ML VIAL SC ×2 (09:15→21:00)
[2018-01-31] MEDS: FLUOXETINE 10 MG CAP PO (21:06)
[2018-02-01 05:37] LABS: ADD MAN DIFF? NO
[2018-02-01 05:47] LABS: WHITE BLOOD COUNT 4.1 10^3/ul (4.8-10.8)
[2018-02-01 05:47] LABS: EOSINOPHILS # 0.2 10^3/ul (0.0-0.5); EOSINOPHILS % 3.7 % (0.0-7.0); HEMATOCRIT 34.8 % (37.0-47.0); HEMOGLOBIN 12.4 g/dl (12.0-16.0); LYMPHOCYTES % 25.2 % (15.0-51.0); MEAN CORPUSCULAR HEMOGLOBIN 36.3 pg (29.0-33.0); MEAN CORPUSCULAR HGB CONC 35.6 g/dl (32.0-37.0); MEAN CORPUSCULAR VOLUME 101.8 fl (82.0-101.0); MEAN PLATELET VOLUME 9.2 fl (7.4-10.4); MONOCYTE # 0.6 10^3/ul (0.3-0.9); MONOCYTES % 15.8 % (0.0-11.0); NEUTROPHIL # 2.2 10^3/ul (1.6-7.5); NEUTROPHILS % 54.1 % (39.0-77.0); PLATELET COUNT 151 10^3/UL (140-415); RED BLOOD COUNT 3.42 10^6/ul (4.20-5.40); RED CELL DISTRIBUTION WIDTH 10.9 % (11.5-14.5)
[2018-02-01 06:03] LABS: INR 0.87; PROTIME 11.9 Sec (11.9-14.9); PT RATIO 0.9
[2018-02-01 06:04] LABS: PARTIAL THROMBOPLASTIN TIME 25.8 Sec (23.0-35.0)
[2018-02-01 06:13] LABS: PHOSPHORUS 4.8 mg/dl (2.5-4.9)
[2018-02-01] MEDS: HYDROmorphONE 1 MG/ML SYG IV ×3 (06:21→14:13)
[2018-02-01 06:26] LABS: ANION GAP 13 (8-16); BLOOD UREA NITROGEN 7 mg/dl (7-20); CALCIUM 9.6 mg/dl (8.4-10.2); CARBON DIOXIDE 34 mmol/L (21-31); CHLORIDE 99 mmol/L (97-110); CREATININE 0.64 mg/dl (0.44-1.00); GLUCOSE 98 mg/dl (70-220); POTASSIUM 4.3 mmol/L (3.5-5.1); SODIUM 142 mmol/L (135-144)
[2018-02-01] MEDS: HEPARIN 5,000 UNIT/0.5 ML VIAL SC ×2 (08:11→22:38)
[2018-02-01] MEDS: NEOMYC/POLYMYX/BACIT 30 GM OINT TOP ×3 (11:47→22:33)
[2018-02-01] MEDS ORDERED: MIDAZOLAM 1 MG/ML 2 ML INJ (16:31)
[2018-02-01] MEDS ORDERED: ROCURONIUM 50 MG INJ (16:31)
[2018-02-01] MEDS ORDERED: FENTAnyl 50 MCG/ML VIAL ×2 (16:31→19:39)
[2018-02-01] MEDS ORDERED: NEOSTIGMINE 3 MG/3 ML SYRINGE (16:31)
[2018-02-01] MEDS ORDERED: PROPOFOL 20 ML (16:31)
[2018-02-01] MEDS ORDERED: ONDANSETRON 4 MG INJ (16:31)
[2018-02-01] MEDS ORDERED: GLYCOPYRROLATE 0.4 MG INJ (16:31)
[2018-02-01] MEDS ORDERED: DEXAMETHASONE 4 MG/ML 1 ML INJ (16:31)
[2018-02-01] MEDS ORDERED: CEFAZOLIN 1 GM INJ (16:31)
[2018-02-01] MEDS ORDERED: ROPIVACAINE 0.5 % 30 ML VIAL ×2 (16:32→18:08)
[2018-02-01] MEDS ORDERED: PHENYLephrine (100 MCG/ML) 5ML SYG (18:15)
[2018-02-01] MEDS: POLYMYXIN/BACITRACIN 1L IRRIG (18:40)
[2018-02-01] MEDS: FLUOXETINE 10 MG CAP PO (22:33)
[2018-02-01] MEDS: SOD CHLORIDE 0.9% 1,000 ML IV (22:51)
[2018-02-01] MEDS: CEFAZOLIN 1 GM/50 ML (PMX) 50 ML IVPB (22:52)
[2018-02-02] MEDS: CEFAZOLIN 1 GM/50 ML (PMX) 50 ML IVPB ×2 (06:01→13:49)
[2018-02-02] MEDS: SOD CHLORIDE 0.9% 1,000 ML IV (07:38)
[2018-02-02] MEDS: POLYETHYLENE GLYCOL 17 GM PACKET PO (09:01)
[2018-02-02] MEDS: DOCUSATE SODIUM 100 MG CAP PO ×2 (09:01→21:09)
[2018-02-02] MEDS: HYDROCODONE/APAP (5/325) TAB PO (09:01)
[2018-02-02] MEDS: NEOMYC/POLYMYX/BACIT 30 GM OINT TOP ×3 (09:01→21:09)
[2018-02-02] MEDS: ENOXAPARIN 40 MG/0.4 ML SYG SC (09:08)
[2018-02-02] MEDS: HYDROmorphONE 1 MG/ML SYG IV ×5 (09:25→21:30)
[2018-02-02 09:42] LABS: ADD MAN DIFF? NO
[2018-02-02 09:44] LABS: WHITE BLOOD COUNT 6.1 10^3/ul (4.8-10.8)
[2018-02-02 09:44] LABS: ABNORMAL IP MESSAGE 1; BASOPHILS % 0.2 % (0.0-2.0); HEMATOCRIT 28.5 % (37.0-47.0); LYMPHOCYTES # 0.6 10^3/ul (0.8-2.9); LYMPHOCYTES % 9.5 % (15.0-51.0); MEAN CORPUSCULAR HGB CONC 35.1 g/dl (32.0-37.0); MEAN CORPUSCULAR VOLUME 102.5 fl (82.0-101.0); MEAN PLATELET VOLUME 9.1 fl (7.4-10.4); MONOCYTE # 0.6 10^3/ul (0.3-0.9); MONOCYTES % 9.9 % (0.0-11.0); NEUTROPHIL # 4.9 10^3/ul (1.6-7.5); NEUTROPHILS % 79.9 % (39.0-77.0); PLATELET COUNT 131 10^3/UL (140-415); RED BLOOD COUNT 2.78 10^6/ul (4.20-5.40)
[2018-02-02 09:48] LABS: POSITIVE DIFF @See below
[2018-02-02 10:10] LABS: ANION GAP 11 (8-16); BLOOD UREA NITROGEN 8 mg/dl (7-20); CALCIUM 9.1 mg/dl (8.4-10.2); CARBON DIOXIDE 29 mmol/L (21-31); CHLORIDE 103 mmol/L (97-110); CREATININE 0.61 mg/dl (0.44-1.00); GLUCOSE 137 mg/dl (70-220); POTASSIUM 4.1 mmol/L (3.5-5.1); SODIUM 139 mmol/L (135-144)
[2018-02-02 10:11] LABS: PHOSPHORUS 3.7 mg/dl (2.5-4.9)
[2018-02-02 10:11] LABS: MAGNESIUM 1.8 mg/dl (1.7-2.5)
[2018-02-02] MEDS: morphine 4 MG/ML VIAL IV ×2 (10:39→13:52)
[2018-02-02] MEDS: HYDROCODONE/APAP (10/325) TAB PO (11:25)
[2018-02-02] MEDS: KETOROLAC 30 MG INJ IV (14:26)
[2018-02-02] MEDS: BISACODYL 10 MG SUPP PR (15:37)
[2018-02-02] MEDS: FLUOXETINE 10 MG CAP PO (21:09)
[2018-02-03] MEDS: HYDROmorphONE 1 MG/ML SYG IV ×2 (02:48→06:04)
[2018-02-03 05:01] LABS: ADD MAN DIFF? NO; BASOPHILS % 0.6 % (0.0-2.0); EOSINOPHILS # 0.2 10^3/ul (0.0-0.5); EOSINOPHILS % 3.1 % (0.0-7.0); HEMATOCRIT 27.3 % (37.0-47.0); HEMOGLOBIN 9.7 g/dl (12.0-16.0); LYMPHOCYTES # 0.8 10^3/ul (0.8-2.9); LYMPHOCYTES % 16.1 % (15.0-51.0); MEAN CORPUSCULAR HEMOGLOBIN 36.5 pg (29.0-33.0); MEAN CORPUSCULAR HGB CONC 35.5 g/dl (32.0-37.0); MEAN CORPUSCULAR VOLUME 102.6 fl (82.0-101.0); MONOCYTE # 0.8 10^3/ul (0.3-0.9); MONOCYTES % 15.9 % (0.0-11.0); NEUTROPHIL # 3.1 10^3/ul (1.6-7.5); NEUTROPHILS % 64.1 % (39.0-77.0); PLATELET COUNT 117 10^3/UL (140-415); RED BLOOD COUNT 2.66 10^6/ul (4.20-5.40); RED CELL DISTRIBUTION WIDTH 11.3 % (11.5-14.5)
[2018-02-03 05:01] LABS: WHITE BLOOD COUNT 4.9 10^3/ul (4.8-10.8)
[2018-02-03 05:29] LABS: ANION GAP 10 (8-16); BLOOD UREA NITROGEN 6 mg/dl (7-20); CALCIUM 8.8 mg/dl (8.4-10.2); CARBON DIOXIDE 31 mmol/L (21-31); CHLORIDE 105 mmol/L (97-110); CREATININE 0.66 mg/dl (0.44-1.00); GLUCOSE 105 mg/dl (70-220); POTASSIUM 4.6 mmol/L (3.5-5.1); SODIUM 141 mmol/L (135-144)
[2018-02-03 05:34] LABS: MAGNESIUM 1.9 mg/dl (1.7-2.5)
[2018-02-03 05:34] LABS: PHOSPHORUS 3.9 mg/dl (2.5-4.9)
[2018-02-03] MEDS: HYDROCODONE/APAP (10/325) TAB PO ×3 (07:21→14:55)
[2018-02-03] MEDS: DOCUSATE SODIUM 100 MG CAP PO (09:21)
[2018-02-03] MEDS: ENOXAPARIN 40 MG/0.4 ML SYG SC (09:23)
[2018-02-03] MEDS: NEOMYC/POLYMYX/BACIT 30 GM OINT TOP ×2 (09:24→13:00)
== END 2018-02-03 16:10 | disposition home health service (06) | DRG 493 ==
LOC: E/R 19:41 → MS1 23:24
PROC: 0QSG04Z Reposition Right Tibia with Internal Fixation Device, Open Approach (ICD-10-PCS; principal; 2018-02-01 17:58)
DX: S82.851A Displaced trimalleolar fracture of right lower leg, initial encounter for closed fracture (principal); C92.01 Acute myeloblastic leukemia, in remission; W17.89XA Other fall from one level to another, initial encounter; Y93.31 Activity, mountain climbing, rock climbing and wall climbing; M81.0 Age-related osteoporosis without current pathological fracture
CPT/HCPCS: 36415; 73600; 73610-RT; 73630; 73700; 80048; 82306; 82652; 83735; 84100; 84703; 85025; 85610; 85730; 96374; 96375; 97116; 97161; 97530; 99285-25

== ENCOUNTER → 2018-03-15 | Emergency (ER) | payer BC ==
[2018-03-15 13:34] LABS: ADD MAN DIFF? NO
[2018-03-15 13:37] LABS: BASOPHIL # 0.1 10^3/ul (0.0-0.1); EOSINOPHILS # 0.1 10^3/ul (0.0-0.5); EOSINOPHILS % 2.3 % (0.0-7.0); HEMATOCRIT 34.6 % (37.0-47.0); HEMOGLOBIN 11.9 g/dl (12.0-16.0); LYMPHOCYTES # 0.9 10^3/ul (0.8-2.9); LYMPHOCYTES % 18.3 % (15.0-51.0); MEAN CORPUSCULAR HEMOGLOBIN 36.4 pg (29.0-33.0); MEAN CORPUSCULAR HGB CONC 34.4 g/dl (32.0-37.0); MEAN CORPUSCULAR VOLUME 105.8 fl (82.0-101.0); MEAN PLATELET VOLUME 8.7 fl (7.4-10.4); MONOCYTE # 0.4 10^3/ul (0.3-0.9); MONOCYTES % 7.4 % (0.0-11.0); NEUTROPHIL # 3.6 10^3/ul (1.6-7.5); NEUTROPHILS % 70.6 % (39.0-77.0); PLATELET COUNT 180 10^3/UL (140-415); RED BLOOD COUNT 3.27 10^6/ul (4.20-5.40); RED CELL DISTRIBUTION WIDTH 11.8 % (11.5-14.5)
[2018-03-15 13:37] LABS: WHITE BLOOD COUNT 5.1 10^3/ul (4.8-10.8)
== END | disposition home or self-care (01) ==
LOC: FTE 12:45
DX: O20.9 Hemorrhage in early pregnancy, unspecified (principal); Z3A.00 Weeks of gestation of pregnancy not specified
CPT/HCPCS: 76801; 76817; 84702; 85025; 86900; 86901; 99284-25